=== PATIENT | female | born 1960 | race Caucasian/White ===

== ENCOUNTER → 2020-08-15 09:46 | Outpatient (CLI) | payer OTHER, SELFPAY ==
--- NOTE | ~2020-08-15 | MM_ITS ---
EXAMINATION: MM screening naren BI w karen HISTORY: Screening mammogram TECHNIQUE: Craniocaudal and mediolateral oblique 3-D tomosynthesis images were obtained and synthetic 2-D images were generated. CAD analysis was submitted and interpreted. COMPARISON: 08/19/2019, 08/06/2018 bilateral digital screening mammogram examinations 08/14/2017 diagnostic left digital mammogram and complete left breast ultrasound 07/31/2017 bilateral digital screening mammogram BREAST PARENCHYMAL COMPOSITION: There are scattered areas of fibroglandular density. FINDINGS: There is stable fibroglandular asymmetry. There is no evidence of suspicious mass, calcific ation, or architectural distortion to suggest malignancy in either breast. There has been no suspicio us interval change. IMPRESSION: 1. No mammographic evidence of malignancy. 2. Recommend routine screening mammography in one year. Reviewed, dictated and finalized at location A.
== END ==
PROVIDERS: Visit Provider Nurse Practitioner
DX: Z12.31 Encounter for screening mammogram for malignant neoplasm of breast (principal)
CPT/HCPCS: 77063; 77067

== ENCOUNTER → 2021-09-03 14:07 | Outpatient (CLI) | payer OTHER, SELFPAY ==
--- NOTE | ~2021-09-03 | MM_ITS ---
EXAMINATION: MM screening naren BI w karen HISTORY: Screening mammogram, family history of breast cancer in her sister. TECHNIQUE: Craniocaudal and mediolateral oblique 3-D tomosynthesis images were obtained and synthetic 2-D images were generated. CAD analysis was submitted and interpreted. COMPARISON: 08/15/2020, 08/09/2019, 08/06/2018 BREAST PARENCHYMAL COMPOSITION: The breasts are heterogeneously dense, which may obscure small masses . FINDINGS: There is stable focal asymmetry in the upper outer quadrant of the left breast. There is no evidence of suspicious mass, calcification, or architectural distortion to suggest malignancy in eit her breast. There has been no suspicious interval change. IMPRESSION: 1. No mammographic evidence of malignancy. 2. Recommend routine screening mammography in one year. BI-RADS Category 2: Benign finding(s). Reviewed, dictated and finalized at location A.
== END ==
PROVIDERS: PCP Family Medicine; Visit Provider Nurse Practitioner
DX: Z12.31 Encounter for screening mammogram for malignant neoplasm of breast (principal)
CPT/HCPCS: 77063; 77067

== ENCOUNTER → 2023-04-02 10:11 | Outpatient (CLI) | payer MEDICARE, SELFPAY ==
--- NOTE | ~2023-04-02 | MM_ITS ---
EXAMINATION: MM screening naren BI w karen HISTORY: Screening mammogram, family history of breast cancer in her sister. TECHNIQUE: Craniocaudal and mediolateral oblique 3-D tomosynthesis images were obtained and synthetic 2-D images were generated. CAD analysis was submitted and interpreted. COMPARISON: 09/03/2021, 08/15/2020, 90 08/20/2019 BREAST PARENCHYMAL COMPOSITION:There are scattered areas of fibroglandular density. FINDINGS: No suspicious mass, calcification, or architectural distortion are identified in either roseann ast to suggest malignancy. There has been no suspicious interval change. IMPRESSION: No mammographic evidence of malignancy. Recommend routine screening mammography in one year. BI-RADS Category 1: Negative Reviewed, dictated and finalized at location .
--- NOTE | ~2023-04-02 | DEXA_ITS ---
Bone Density Report Name: LISA WHITEHEAD Age: 63 Sex: Female Ethnicity: White Date of : 1960 Indication: postmenopausal; screening for osteoporosis; height loss; Referring Provider: MAURICE, CARISSA Study: Bone densitometry was performed. Exam Date: April 02, 2023 Accession number: [id number] Bone Density: Region BMD T-score Z-score Classification AP Spine (L1-L4) 1.143 0.9 2.6 Normal Femoral Neck (Left) 1.003 1.4 2.9 Normal Total Hip (Left) 1.094 1.2 2.5 Normal Femoral Neck (Right) 0.922 0.7 2.2 Normal Total Hip (Right) 1.013 0.6 1.8 Normal Total Hip Mean 1.054 0.9 2.2 Normal World Health Organization criteria for BMD impression classify patients as: Normal (T-score at or above -1.0), Osteopenia (T-score between -1.0 and -2.5), or Osteoporosis (T-score at or below -2.5). 10-year Fracture Risk: FRAX not reported because: All T-scores for Spine Total, Hip Total, Femoral Neck at or above -1.0 Previous Exams: Region Exam Age BMD T-score BMD Change BMD Change Date g/cm2 vs Baseline vs Previous AP Spine(L1-L4) 04/02/2023 63 1.143 0.9 -0.042* -0.030* 07/31/2017 57 1.172 1.1 -0.012 0.069* 06/02/2013 53 1.103 0.5 -0.081* -0.081* 04/03/2009 49 1.184 1.2 Total Hip(Left) 04/02/2023 63 1.094 1.2 0.038* 0.015 07/31/2017 57 1.079 1.1 0.023 0.022 06/02/2013 53 1.056 0.9 0.001 0.001 04/03/2009 49 1.056 0.9 Total Hip(Right) 04/02/2023 63 1.013 0.6 -0.073* -0.049* 07/31/2017 57 1.062 1.0 -0.024 -0.044* 06/02/2013 53 1.106 1.3 0.020 0.020 04/03/2009 49 1.085 1.2 *Denotes significance at 95% confidence level, LSC for AP Spine = 0.022 g/cm2, LSC for Total Hip = 0.027 g/cm2 Clinical Information Provided by Patient: Has used the following medications: Vitamin D Patient maximum height was 62 Menopause Age: 51 Drinks caffeinated beverages Onset of menses at age 10 Number of children 4 Impression: The patient has normal bone mass. The BMD for the AP Spine(L1-L4) decreased, changing by -0.030 since the last DXA exam. The BMD for the Total Hip(Right) decreased, changing by -0.049 since the last DXA exam. Discussion: BONE DENSITY IS ABOVE THE MINIMUM DESIRABLE LEVEL AT ALL SKELETAL SITES TESTED. This patient?s bone min
== END ==
PROVIDERS: PCP Family Medicine; Visit Provider Nurse Practitioner
DX: Z12.31 Encounter for screening mammogram for malignant neoplasm of breast (principal); Z78.0 Asymptomatic menopausal state
CPT/HCPCS: 77063; 77067; 77080

== ENCOUNTER 2024-04-05 07:14 | Outpatient (CLI) | payer MEDICARE, SELFPAY ==
--- NOTE | ~2024-04-05 | MM_ITS ---
EXAMINATION: MM screening naren BI w karen HISTORY: Screening mammogram TECHNIQUE: Craniocaudal and mediolateral oblique 3-D tomosynthesis images were obtained and synthetic 2-D images were generated. CAD analysis was submitted and interpreted. COMPARISON: 04/02/2023, 09/03/2021 bilateral screening mammogram examinations BREAST PARENCHYMAL COMPOSITION: There are scattered areas of fibroglandular density. FINDINGS: Stable fibroglandular asymmetry. There is no evidence of suspicious mass, calcification, or architectural distortion to suggest malignancy in either breast. There has been no suspicious interv al change. IMPRESSION: 1. No mammographic evidence of malignancy. 2. Recommend routine screening mammography in one year. BI-RADS Category 1: Negative Reviewed, dictated and finalized at location A.
== END 2024-04-05 07:15 ==
LOC: MICIMG 07:15
PROVIDERS: PCP Obstetrics & Gynecology Gynecology; Visit Provider Obstetrics & Gynecology Gynecology
DX: Z12.31 Encounter for screening mammogram for malignant neoplasm of breast (principal)
CPT/HCPCS: 77063; 77067

== ENCOUNTER 2024-08-03 05:54 | Day surgery (SDC) | payer MEDICARE, SELFPAY ==
[2024-07-20 09:16] VITALS: BMI 34.9
[2024-07-20 13:54] VITALS: BMI 33.9
--- NOTE | 2024-07-27 10:03 | P.HP_ITS ---
History of Present Illness History of Present Illness Consent: Risks, benefits, and alternatives have been discussed and questions answered. Patient agrees to proceed with procedure. Chief complaint: Screening for neoplasm of colon Narrative: Beatris Borges is a 64 year old female referred for colon cancer screening. [facility] Past Medical History Medical History (Updated 07/27/24 @ 10:03 by Ronnie Welch MD) Arthritis Carpal tunnel syndrome on both sides Excessive cerumen in both ear canals Rotator cuff arthropathy of both shoulders Family History Family History Father Leukemia Mother Brain tumor Sibling No problems noted. Other Family history of blood dyscrasia Family history of malignant neoplasm of breast in first degree relative Hypertension Social History Social History Smoking status: Never smoker Alcohol intake: never Substance use: never Substance use type: does not use Do You Feel Safe in your Home?: Yes Lack of Transportation: No Lack of Food: Never True Current Housing: I Have Housing Concerned About Future Housing: No Difficulty Paying Gas/Electric Bills: No Difficulty Paying for Meds: No Currently Unemployed: No Difficulty w/ Childcare or Family Care: No Living arrangements: with family Occupation/Education: retired Gender identity (if verbalized by the patient): Female Spiritual care concerns: No Meds Home Medications and Allergies Home Medications Medication Instructions Recorded Confirmed Type atorvastatin 10 mg tablet 10 mg PO DAILY #90 tabs 07/05/24 07/20/24 Rx cholecalciferol (vitamin D3) 125 125 mcg PO DAILY 07/05/24 07/20/24 History mcg (5,000 unit) capsule meloxicam 7.5 mg tablet 7.5 mg PO DAILY 07/05/24 07/20/24 History potassium chloride 10 mEq 10 meq PO DAILY #90 caps 07/05/24 07/20/24 Rx capsule,extended release triamterene 37.5 1 tablet PO DAILY #90 tabs 07/05/24 07/20/24 Rx mg-hydrochlorothiazide 25 mg tablet Allergies Allergy/AdvReac Type Severity Reaction Status Date / Time No Known Allergies Allergy Verified 07/20/24 13:56 Assessment and Plan Assessment and plan (1) Colon cancer screening: Code(s): Z12.11 - Encounter for screening for malignant neoplasm of colon Status: Acute Assessment and Plan: Colonoscopy with possible biopsy or polypectomy or cautery or injection of substances.
[2024-08-03 06:25] VITALS: BP 133/91; PULSE 79; RESP 15; TEMP 37.2; O2SAT 99
[2024-08-03] MEDS: LACTATED RINGERS 1,000 ML 150 ML IV CONT (06:32)
--- NOTE | 2024-08-03 06:56 | PM.HPGS ---
History of Present Illness History of Present Illness Consent: Risks, benefits, and alternatives have been discussed and questions answered. Patient agrees to proceed with procedure. Chief complaint: Screening for neoplasm of colon Narrative: Beatris Borges is a 64 year old female for screening colonoscopy. Patient's current weight appetite and bowel movements are normal. She denies abdominal pain. Patient has had no bleeding. Family history noncontributory. Previous colonoscopy 10 years ago was reported to be unremarkable. Review of Systems Review of Systems: All systems reviewed & are unremarkable except as noted in HPI and below PMFSH Past Medical History Medical History (Updated 07/27/24 @ 10:03 by Ronnie Welch MD) Arthritis Carpal tunnel syndrome on both sides Excessive cerumen in both ear canals Rotator cuff arthropathy of both shoulders Family History Family History Father Leukemia Mother Brain tumor Sibling No problems noted. Other Family history of blood dyscrasia Family history of malignant neoplasm of breast in first degree relative Hypertension Social History Social History Smoking status: Never smoker Alcohol intake: never Substance use: never Substance use type: does not use Do You Feel Safe in your Home?: Yes Lack of Transportation: No Lack of Food: Never True Current Housing: I Have Housing Concerned About Future Housing: No Difficulty Paying Gas/Electric Bills: No Difficulty Paying for Meds: No Currently Unemployed: No Difficulty w/ Childcare or Family Care: No Living arrangements: with family Occupation/Education: retired Gender identity (if verbalized by the patient): Female Spiritual care concerns: No Meds Home Medications and Allergies Home Medications Medication Instructions Recorded Confirmed Type atorvastatin 10 mg tablet 10 mg PO DAILY #90 tabs 07/05/24 08/03/24 Rx cholecalciferol (vitamin D3) 125 125 mcg PO DAILY 07/05/24 08/03/24 History mcg (5,000 unit) capsule meloxicam 7.5 mg tablet 7.5 mg PO DAILY 07/05/24 08/03/24 History potassium chloride 10 mEq 10 meq PO DAILY #90 caps 07/05/24 08/03/24 Rx capsule,extended release triamterene 37.5 1 tablet PO DAILY #90 tabs 07/05/24 08/03/24 Rx mg-hydrochlorothiazide 25 mg tablet Allergies Allergy/AdvReac Type Severity Reaction Status Date / Time No Known Allergies Allergy Verified 08/03/24 06:24 Vital Signs Vital Signs - 24 hr 08/03/24 06:25 Temperature 99 F Pulse Rate 79 Respiratory Rate 15 Blood Pressure 133/91 H Pulse Oximetry 99 Oxygen Delivery Room Air Exam Narrative: Physical exam reveals patient to be alert. Vital signs stable. HEENT exam is unremarkable. Patient is anicteric. Lungs are clear. Heart without murmur. Abdomen bowel sounds present soft nontender with no organomegaly. Digital external rectal exam normal. Assessment and Plan Assessment and plan (1) Colon cancer screening: Code(s): Z12.11 - Encounter for screening for malignant neoplasm of colon Status: Acute Assessment and Plan: Patient presents today for screening colonoscopy. She appears to be at average risk for colon polyps. Further recommendations may be given after endoscopy.
--- NOTE | 2024-08-03 07:02 | WPDANESEPPF ---
Anes - Initial Pre Proc Eval Procedure: Operation Date: 08/03/24 07:30 Proposed Procedures p Screening Colonoscopy - Ran Torres MD Date/Time: 08/03/24 07:02 Surgeon: Ran Torres MD Pre Op Diagnosis: Screening for neoplasm of colon Patient Data Age: 64 Gender: F Height: 1.55 m Weight: 81.25 kg Last Vital Signs Temp 37.2 C 08/03/24 06:25 Pulse 79 08/03/24 06:25 Resp 15 08/03/24 06:25 BP 133/91 H 08/03/24 06:25 Pulse Ox 99 08/03/24 06:25 O2 Del Method Room Air 08/03/24 06:25 Allergies Allergy/AdvReac Type Severity Reaction Status Date / Time No Known Allergies Allergy Verified 08/03/24 06:24 Home Medications Medication Instructions Recorded Confirmed Type atorvastatin 10 mg tablet 10 mg PO DAILY #90 tabs 07/05/24 08/03/24 Rx cholecalciferol (vitamin D3) 125 125 mcg PO DAILY 07/05/24 08/03/24 History mcg (5,000 unit) capsule meloxicam 7.5 mg tablet 7.5 mg PO DAILY 07/05/24 08/03/24 History potassium chloride 10 mEq 10 meq PO DAILY #90 caps 07/05/24 08/03/24 Rx capsule,extended release triamterene 37.5 1 tablet PO DAILY #90 tabs 07/05/24 08/03/24 Rx mg-hydrochlorothiazide 25 mg tablet Patient hx anesthesia problems: none Family hx anesthesia problems: none Results Review: All pre-operative results and documents have been reviewed as part of the pre-operative evaluation. [facility] Past Medical History Medical History (Updated 07/27/24 @ 10:03 by Ronnie Welch MD) Arthritis Carpal tunnel syndrome on both sides Excessive cerumen in both ear canals Rotator cuff arthropathy of both shoulders Family History Family History Father Leukemia Mother Brain tumor Sibling No problems noted. Other Family history of blood dyscrasia Family history of malignant neoplasm of breast in first degree relative Hypertension Social History Social History Smoking status: Never smoker Alcohol intake: never Substance use: never Substance use type: does not use Do You Feel Safe in your Home?: Yes Lack of Transportation: No Lack of Food: Never True Current Housing: I Have Housing Concerned About Future Housing: No Difficulty Paying Gas/Electric Bills: No Difficulty Paying for Meds: No Currently Unemployed: No Difficulty w/ Childcare or Family Care: No Living arrangements: with family Occupation/Education: retired Gender identity (if verbalized by the patient): Female Spiritual care concerns: No Anes - Eval Final PreProcedure Day of Procedure 08/03/24 07:02 Patient weight: obese Heart: regular rate and rhythm Lungs: clear to auscultation Airway: Mallampati scale class II Neurological: alert and oriented Last oral intake: >/= 8 hours ASA classification: II Emergent: no Anesthetic plan: proceed Anesthesia type and monitoring: general GIVS and standard monitoring Results Review: All pre-operative results and documents have been reviewed as part of the pre-operative evaluation. Informed Consent: The patient's anesthetic plan and its attendant risks and benefits were discussed with the patient/family/POA. Questions were solicited and answers provided to the satisfaction of the patient/family/POA.
[2024-08-03 07:42] VITALS: BP 112/69; PULSE 70; RESP 12; O2SAT 96
[2024-08-03 07:52] VITALS: BP 125/71; PULSE 66; RESP 14; O2SAT 99
[2024-08-03 08:02] VITALS: BP 121/76; PULSE 70; RESP 16; O2SAT 99
--- NOTE | 2024-08-03 11:21 | WPDANESPN ---
Anes - Prog Note Post-Op Date/Time: 08/03/24 11:21 Cardiovascular status: normal Respiratory status: normal Airway patency: baseline Mental status: baseline Post-Op hydration status: normal Vital Signs: Last Vital Signs Temp 37.2 C 08/03/24 06:25 Pulse 70 08/03/24 08:02 Resp 16 08/03/24 08:02 BP 121/76 08/03/24 08:02 Pulse Ox 99 08/03/24 08:02 O2 Del Method Room Air 08/03/24 08:02 Pain Score (VAS): 0 I/O: Intake & Output 08/02/24 08/03/24 08/03/24 23:59 07:59 15:59 Intake Total 200 50 Balance 200 50 Post-procedural complaints: none Patient Feedback: Patient satisfied with anesthetic care. Other Findings: Patient vital signs back to baseline. Patient denies nausea and vomiting. Patient's pain under control. Patient OK for discharge.
== END 2024-08-03 08:08 | disposition home or self-care (01) ==
PROVIDERS: PCP Family Medicine; Visit Provider Internal Medicine Gastroenterology
PROC: 0DJD8ZZ Inspection of Lower Intestinal Tract, Via Natural or Artificial Opening Endoscopic (ICD-10-PCS; CPT 45378; principal; 2024-08-03 07:30)
DX: Z12.11 Encounter for screening for malignant neoplasm of colon (principal); D12.2 Benign neoplasm of ascending colon; K57.30 Diverticulosis of large intestine without perforation or abscess without bleeding; K64.8 Other hemorrhoids
CPT/HCPCS: 45378

== ENCOUNTER 2024-08-03 07:00 | Outpatient (NON) | payer MEDICARE, SELFPAY | END 2024-08-03 07:01 | disposition home or self-care (01) | LOC: ANHLAB 08-04 08:24 | PROVIDERS: PCP Family Medicine; Visit Provider Internal Medicine Gastroenterology | DX: Z12.11 Encounter for screening for malignant neoplasm of colon (principal) | CPT/HCPCS: 88305 ==

== ENCOUNTER 2024-11-17 14:56 | Outpatient (CLI) | payer MEDICARE, SELFPAY ==
--- NOTE | ~2024-11-17 | US_ITS ---
EXAMINATION: US carotid duplex BI DATE: 11/17/2024 15:33 INDICATION: Other specified symptoms and signs involving the circulatory system. TECHNIQUE: Grayscale, color Doppler, and pulsed Doppler images of the cervical carotid arteries were obtained. The degree of vessel stenosis is placed in one of the following categories: normal, <50%, 5 0-69%, >=70% but less than near-occlusion, near-occlusion, or total occlusion. Note that percent sten osis relative to normal distal artery lumen diameter is indirectly measured from velocity measurement s as described by Rasheed, et al. Radiology 2003; 229:340-346. COMPARISON: None. FINDINGS: RIGHT: The right common carotid artery (CCA) peak systolic velocity (PSV) is 93 cm/s. The right internal car otid artery (ICA) PSV is 108 cm/s. The right ICA end-diastolic velocity (EDV) is 33 cm/s. The right I CA/CCA PSV ratio is 1.3. Grayscale and color Doppler images yield an estimate of <50% diameter reduct ion from plaque in the ICA. The external carotid artery (ECA) PSV is 145 cm/s. There is antegrade mariama w in the right vertebral artery. LEFT: The left CCA PSV is 77 cm/s. The left ICA PSV is 124 cm/s. The left ICA EDV is 30 cm/s. The left ICA/ CCA PSV ratio is 1.6. Grayscale and color Doppler images yield an estimate of <50% diameter reduction from plaque in the ICA. The ECA PSV is 107 cm/s. There is antegrade flow in the left vertebral arter y. IMPRESSION: 1. <50% stenosis in the right internal carotid artery. 2. <50% stenosis in the left internal carotid artery. Reviewed, dictated and finalized at location A. DYER
== END 2024-11-17 14:57 | disposition home or self-care (01) ==
PROVIDERS: PCP Family Medicine; Visit Provider Family Medicine
DX: R09.89 Other specified symptoms and signs involving the circulatory and respiratory systems (principal); I65.23 Occlusion and stenosis of bilateral carotid arteries
CPT/HCPCS: 93880

== ENCOUNTER 2024-12-09 10:09 | Outpatient (CLI) | payer MEDICARE, SELFPAY ==
--- NOTE | ~2024-12-09 | XR_ITS ---
XR shoulder RT min 2V 12/09/2024 10:39 Indication: Right shoulder pain Procedure: 4 views right shoulder Comparison: . No prior studies for comparison. Findings: There is osteoarthritis of the glenohumeral joint. No acute fracture, subluxation or disloc ation. No significant soft tissue abnormality. No foreign bodies. Impression: 1: Moderate osteoarthritis of the glenohumeral joint. Reviewed, dictated and finalized at location B. CHARGER Impression: 1: Moderate osteoarthritis of the glenohumeral joint.
--- NOTE | ~2024-12-09 | XR_ITS ---
HISTORY: M12.811 - Other specific arthropathies, not elsewhere cla... COMPARISON: None TECHNIQUE: 4 views of the left shoulder were performed FINDINGS: No acute fracture. The glenohumeral joint space is maintained. Degenerative disease is identified within the acromioclavicular joint space with osteophyte formation and joint space narrowing. The visualized portion of the adjacent left lung is clear. The humeral head is well seated within the glenoid fossa. IMPRESSION: Degenerative disease, without acute fracture or anterior dislocation. Reviewed, dictated and finalized at location A. [employer]
== END 2024-12-09 10:10 | disposition home or self-care (01) ==
PROVIDERS: PCP Family Medicine; Visit Provider Family Medicine
DX: M19.011 Primary osteoarthritis, right shoulder (principal); M19.012 Primary osteoarthritis, left shoulder
CPT/HCPCS: 73030

== ENCOUNTER 2025-01-19 06:52 | Outpatient (CLI) | payer MEDICARE, SELFPAY ==
--- NOTE | ~2025-01-19 | MR_ITS ---
MRI of the left shoulder Technique: Axial proton-density fat-sat images, coronal proton density fat-sat and T2 fat-sat images, and sagittal T1-weighted and T2 fat-sat images were acquired. Clinical History: Arthropathy Findings: Exam degraded by motion artifact. There is moderate to advanced AC joint degenerative willis e with subacromial spur present. Coracoclavicular, coracoacromial, and coracohumeral ligaments are gr ossly intact. There is probable moderate rotator cuff tendinosis. There is probable high-grade partial or full-thic kness tearing of the distal infraspinatus tendon. No definite partial or full-thickness tear of the s upraspinatus tendon. Subscapularis tendon is intact with moderate to advanced tendinosis. Tendon of l felicita head of the biceps appears to be intact. No definite labral tear evident. Inferior glenohumeral ligament is intact. There is small glenohumeral joint effusion. There is small amount of fluid in the subacromial/subdeltoid bursa. There is probable mild degenerative change of th e glenohumeral joint. There is mild fatty atrophy of the upper portion of the infraspinatus muscle. Impression: High-grade partial or full-thickness tearing of the distal infraspinatus tendon. Associated fatty atr ophy of the upper portion of the infraspinatus muscle belly. Additional background rotator cuff tendinosis, as above. Moderate to advanced AC joint degenerative change. Reviewed, dictated and finalized at [facility]. CTOR OF ENGINEERING Impression: High-grade partial or full-thickness tearing of the distal infraspinatus tendon . Associated fatty atrophy of the upper portion of the infraspinatus muscle bel ly. Additional background rotator cuff tendinosis, as above. Moderate to advanced AC joint degenerative change.
--- NOTE | ~2025-01-19 | MR_ITS ---
MRI of the right shoulder Technique: Axial proton-density fat-sat images, coronal proton density fat-sat and T2 fat-sat images, and sagittal T1-weighted and T2 fat-sat images were acquired. Clinical History: Arthropathy Findings: There is moderate to advanced AC joint degenerative change. Coracoclavicular, coracoacromia l, and coracohumeral ligaments are intact. There is severe supraspinatus tendinosis. There is probable low-grade bursal surface partial tearing of the distal supraspinatus tendon insertion. There is full-thickness tearing involving essentially t he entire infraspinatus tendon. Subscapularis tendon demonstrates severe tendinosis without definite tear. There is complete rupture of the proximal long head biceps tendon, with retraction to the bicip ital groove. There is extensive degenerative attenuation and tearing of the superior labrum, probably extending to the anterosuperior and posterior superior portions. Inferior glenohumeral ligament is intact. There is moderate glenohumeral joint degenerative change. T here are small glenohumeral joint effusion with fluid passing through the rotator cuff defect into th e subacromial/subdeltoid bursa. Probable mild fatty atrophy of the infraspinatus muscle belly. Impression: Complete, full-thickness tear of the infraspinatus tendon with probable mild fatty atrophy of the inf raspinatus muscle belly. Low-grade bursal surface partial tearing of the distal supraspinatus tendon. Complete rupture of the proximal long head biceps tendon. Moderate to advanced degenerative change of the glenohumeral joint and AC joint, as above. Degenerative SLAP tear of the labrum. Reviewed, dictated and finalized at [facility]. E SOURER Impression: Complete, full-thickness tear of the infraspinatus tendon with probable mild fa tty atrophy of the infraspinatus muscle belly. Low-grade bursal surface partial tearing of the distal supraspinatus tendon. Complete rupture of the proximal long head biceps tendon. Moderate to advanced degenerative change of the glenohumeral joint and AC joint , as above. Degenerative SLAP tear of the labrum.
--- OUTSIDE RECORDS SUMMARY | 2025-01-19 06:58 | XMS_ITS | Clinical Summary ---
Author Organization [facility] [place] Address [address] [place] [id number] Care Team Providers Care Riding Double Name Role Phone Yeison Gilliland DO Primary Care Provider Social History Tobacco Use Types Packs/Day Years Used Date Smoking Tobacco: Never Assessed Comments Unknown Sex and Gender Information Value Date Recorded Sex Assigned at Not on file Legal Sex Female 9:35 PM CDT Gender Identity Not on file Sexual Orientation Not on file Plan of Treatment Health Maintenance Due Date Last Done Comments Colorectal Cancer Screening Colonoscopy (10 Years) 1960 Hepatitis C 1976 DTaP, Tdap and Td Vaccines ( 1 - Tdap) 1977 Mammogram Screening 1998 Zoster Vaccines (1 of 2) 2008 Dexa Scan (General) 2023 Pneumococcal Vaccine: 65+ Ye ars (1 of 1 - PCV) 2023 COVID-19 Vaccine ( - 2023-2 5 season) 2024 Influenza Adult (#1) 2024 RSV Immunization or 60+ Years (1 - 1-dose 75+ series) 2033 Meningococcal B Vaccine Aged Out No l onger eligible based on patient's age to complete this topic Meningococcal Vaccine Aged Out No michell asa eligible based on patient's age to complete this topic RSV Immunizations Under 20 Months Aged Out No longer eligible based on patient's age to complete this topic Care Teams Riding Double Relationship Specialty Start Date End Date Yeison Gilliland DO PCP - General 08/17/13
--- OUTSIDE RECORDS SUMMARY | 2025-01-19 06:58 | XMS_ITS | Referral Summary ---
Author Organization [facility] at the [facility] Address [address] [place] [address] Care Team Providers Care Inspector Machine Cut Glass Name Role Phone Yeison Serrato DO Primary Care Provider + Yeison Serrato DO Unavailable [phone] Allergies Active Allergy Reactions Criticality Noted Date Comments Tramadol Tramadol Hcl Unknown 05/11/2019 Medications potassium 99 mg tablet Take 1 tablet (99 mg total) by mouth daily Active triamterene-hydr oCHLOROthiazide 37.5-25 mg per tablet Take 1 tablet by mouth once daily 90 tablet 1 07/13/2023 Active meloxicam (MOBIC) 7.5 mg tablet Take 1 tablet by mouth once daily 90 tablet 1 07/13/2023 Active atorvastatin (LIPITOR) 10 mg tablet Take 1 tablet by mouth once daily 30 tablet 2 12/03/2023 Active Active Problems Problem Noted Date Diagnosed Date Encounter for Medicare annual wellness exam 08/2023 Assessment & Plan (07/09/2023 9:14 AM CDT): Meds reviewed and reconciled Dyslipidemia 07/26/2021 Assessment & Plan (01/28/2022 7:50 AM LOADING DOCK HELPER): Patient is well controlled. Continue current treatment. Assessment & Plan (07/26/2021 7:41 AM CDT): Lipid profile and LFT HTN (hypertension) 05/17/2019 Assessment & Plan (01/28/2022 7:50 AM LOADING DOCK HELPER): Patient is well controlled. Continue current treatment. Assessment & Plan (07/26/2021 7:40 AM CDT): CBC Chem 7 Assessment & Plan (07/19/2020 9:39 AM CDT): Patient is well controlled. Continue current treatment. Assessment & Plan (11/16/2019 8:37 AM LOADING DOCK HELPER): Order lab Assessment & Plan (05/17/2019 9:04 AM CDT): Patient is well controlled. Continue current treatment. Osteoarthritis 05/17/2019 Assessment & Plan (01/28/2022 7:51 AM LOADING DOCK HELPER): Patient is well controlled. Continue current treatment. Assessment & Plan (07/19/2020 9:39 AM CDT): Patient is well controlled. Continue current treatment. Assessment & Plan (11/16/2019 8:37 AM LOADING DOCK HELPER): No new orders Assessment & Plan (05/17/2019 9:04 AM CDT): Patient is well controlled. Continue current treatment. Resolved Problems Problem Noted Date Diagnosed Date Resolved Date BMI 33.0-33.9,adult 07/26/2021 01/28/20 22 Assessment & Plan (07/26/2021 7:42 AM CDT): She is exercising regularly. She is watching her diet. Neck swelling 11/16/2019 07/26/2021 Assessment & Plan (11/16/2019 8:42 AM LOADING DOCK HELPER): Fu ER Doing well No new orders Annual physical exam 09/15/2019 08 023 Assessment & Plan (01/28/2022 7:50 AM LOADING DOCK HELPER): Patient is well controlled. Continue current treatment. Annual physical exam 05/17/2019 022 Assessment & Plan (01/25/2021 10:04 AM LOADING DOCK HELPER): All lab utd Mammogram utd Colonoscopy utd Assessment & Plan (05/17/2019 9:08 AM CDT): Lab Colonoscopy Osteoarthritis of foot 01/04/201601/28 Overview (03/13/2017): Primary osteoarthritis of right foot Immunizations Immunization Administration Dates Next Due Influenza, Quadrivalent, Spl it, Preservative Free, Intramuscular 12/10/2022,10/09/2021,08/29/2020,09/15 Influenza, Trivalent, Preser vative Free, Intramuscular 12/01/2018 Influenza, Unspecified 08/31/2021,09/01/2020 Tdap 09/15/2019 ZOSTER Recombinant 06/24/2023 Social History Tobacco Use Types Packs/Day Years Used Date Smoking Tobacco: Never Smokeless Tobacco: Never Alcohol Use Standard Drinks/Week Comments Never 0 (1 standard drink = 0.6 oz pur e alcohol) AUDIT-C Answer Date Recorded Q1: How often do you have a drink containing alc ohol? Never 07/09/2023 Average Number of Drinks Not on file 023 Frequency of Binge Drinking Not on file 08/2023 PHQ-2 Answer Date Recorded PHQ-2 Total Score (If total score is 3 or more points, staff should administer the PHQ-9) 0 07/09/2023 Comments No Sex and Gender Information Value Date Recorded Sex Assigned at Not on file Legal Sex Female 11:14 AM LOADING DOCK HELPER Gender Identity Not on file Sexual Orientation Not on file Last Filed Vital Signs Vital Sign Reading Time Taken Comments Blood Pressure 132/82 07/09/2023 8:51 AM CDT Pulse 75 07/09/2023 8:51 AM CDT Temperature 36.6 C (97.8 F) 07/09/2023 8:51 AM CDT Respiratory Rate 16 07/09/2023 8:51 AM CDT Oxygen Saturation 96% 07/09/2023 8:51 AM CDT Inhaled Oxygen Concentration - - Weight 84.7 kg (186 lb 12.8 oz) 07/09/2023 8:51 AM CDT Height 157.5 cm (5' 2 ) 07/09/2023 8:51 AM CDT Body Mass Index 34.17 07/09/2023 8:51 AM CDT Plan of Treatment Not on file Procedures Procedure Name Priority Date/Time Associated Diagnosis Comments HEPATITIS C ANTIBODY Routine 12/26/2021 7:55 AM LOADING DOCK HELPER Primary hypertension Dyslipidemia BMI 33.0-33.9,adult Contact with and (suspected) exposure to potentially hazardous body fluids SCREENING MAMMOGRAM Schedule Routine, Read Routine (OP Routine) 09/03/2021 COLONOSCOPY Routine 06/15/2019 from Last 3 Months or Most Recently Relevant to Health Maintenance Results * Hepatitis C antibody (12/26/2021 7:55 AM LOADING DOCK HELPER) Hep C Ab <0.1 0.0 - 0.9 s/co ratio [facility] - 01 Comment: Negative: < 0.8 Indeterminate: 0.8 - 0.9 Positive: > 0.9 The CDC recommends that a positive HCV antibody result be followed up with a HCV Nucleic Acid Amplification test (600308). Blood specimen (specimen) 12/26/2021 7:55 AM LOADING DOCK HELPER 12/26/2021 Narrative [facility] - 12/27/2021 7:36 AM LOADING DOCK HELPER Performed at: [facility] [id number] Marine Machinist: Ian Wilkerson PhD, Phone: [phone] us Yeison Serrato DO LAB MICROBIOLOGY - GENER AL ORDERABLES Final Result [facility] - 01 * Screening Mammogram (09/03/2021) Anatomical Region Laterality Modality Breast N/A Mammography us Historical Provider IMG MAMMO PROCEDURES Inez l Result * Colonoscopy (06/15/2019) Anatomical Region Laterality Modality Other us Historical Provider ENDOSCOPY PROCEDURES Inez l Result from Last 3 Months or Most Recently Relevant to Health Maintenance Insurance MEDICARE [facility] Address: [address] [address] [place] [address] Care Teams Inspector Machine Cut Glass Relationship Specialty Start Date End Date Yeison Serrato DO PCP - General Family Medicine 05/12/19 Yeison Serrato DO [address] [place] [address] [place] [address] 05/12/19
--- OUTSIDE RECORDS SUMMARY | 2025-01-19 06:58 | XMS_ITS | Encounter Summary ---
Author Organization [facility] Care Team Providers Care Associate Art Director Name Role Phone Yeison Serrato DO Primary Care Provider + [phone] Yeison Serrato DO Primary Care Provider + [phone] Yeison Serrato DO Primary Care Provider + Yeison Serrato DO Unavailable [phone] Encounter Details Date Type Department Care Team (Latest Contact Info) Description 06/28/2016 Orders Only [facility] Provider, MD Aster [address] [place] [id number] Social History Tobacco Use Types Packs/Day Years Used Date Smoking Tobacco: Never Assessed Comments Unknown Sex and Gender Information Value Date Recorded Sex Assigned at Not on file Legal Sex Female 11:14 AM FERMENTER [place]AMP[place]NE Gender Identity Not on file Sexual Orientation Not on file documented as of this encounter Plan of Treatment Not on file documented as of this encounter Procedures Procedure Name Priority Date/Time Associated Diagnosis Comments SCAN - LABS 07/01/2016 12:00 AM CDT documented in this encounter Results * SCAN - LABS (07/01/2016 12:00 AM CDT) Narrative 07/01/2016 12:00 AM CDT Ordered by an unspecified provider. us Historical Provider Final Res ult documented in this encounter Visit Diagnoses Not on filedocumented in this encounter Care Teams Associate Art Director Relationship Specialty Start Date End Date Yeison Serrato DO [address] [place] [address] PCP - General 04/08/16 11/28/16 Yeison Serrato DO [address] [place] [address] PCP - General 11/29/16 05/11/19 Yeison Serrato DO [address] [place] [address] PCP - General Family Medicine 05/12/19 Yeison Serrato DO [address] [place] [address] 05/12/19 documented as of this encounter
--- OUTSIDE RECORDS SUMMARY | 2025-01-19 06:58 | XMS_ITS | Clinical Summary ---
Author Organization [facility] [place] Address [address] [place] [address] Care Team Providers Care Tennis Player Name Role Phone Yeison Serrato DO Primary Care Provider + Yeison Serrato DO Unavailable [phone] Allergies Active Allergy Reactions Criticality Noted Date [...] 07/26/2021 Assessment & Plan (01/28/2022 7:50 AM SHOE POLISHER): Patient is well controlled. Continue current treatment. Assessment & Plan (07/26/2021 7:41 AM CDT): Lipid profile and LFT HTN (hypertension) 05/17/2019 Assessment & Plan (01/28/2022 7:50 AM SHOE POLISHER): Patient is well controlled. Continue current treatment. Assessment & Plan (07/26/2021 7:40 AM CDT): CBC Chem 7 Assessment & Plan (07/19/2020 9:39 AM CDT): Patient is well controlled. Continue current treatment. Assessment & Plan (11/16/2019 8:37 AM SHOE POLISHER): Order lab Assessment & Plan (05/17/2019 9:04 AM CDT): Patient is well controlled. Continue current treatment. Osteoarthritis 05/17/2019 Assessment & Plan (01/28/2022 7:51 AM SHOE POLISHER): Patient is well controlled. Continue current treatment. Assessment & Plan (07/19/2020 9:39 AM CDT): Patient is well controlled. Continue current treatment. Assessment & Plan (11/16/2019 8:37 AM SHOE POLISHER): No new orders Assessment & Plan (05/17/2019 9:04 AM CDT): Patient is well controlled. Continue current treatment. Resolved Problems Problem Noted Date Diagnosed Date Resolved Date BMI 33.0-33.9,adult 07/26/2021 01/28/20 22 Assessment & Plan (07/26/2021 7:42 AM CDT): She is exercising regularly. She is watching her diet. Neck swelling 11/16/2019 07/26/2021 Assessment & Plan (11/16/2019 8:42 AM SHOE POLISHER): Fu ER Doing well No new orders Annual physical exam 09/15/2019 08 023 Assessment & Plan (01/28/2022 7:50 AM SHOE POLISHER): Patient is well controlled. Continue current treatment. Annual physical exam 05/17/2019 022 Assessment & Plan (01/25/2021 10:04 AM SHOE POLISHER): All lab utd Mammogram utd Colonoscopy utd Assessment & Plan (05/17/2019 9:08 AM CDT): Lab Colonoscopy Osteoarthritis of foot 01/04/201601/28 Overview (03/13/2017): Primary osteoarthritis of right foot Immunizations Immunization Administration Dates Next Due Influenza, Quadrivalent, Spl it, Preservative Free, Intramuscular 12/10/2022,10/09/2021,08/29/2020,09/15 Influenza, Trivalent, Preser vative Free, Intramuscular 12/01/2018 Influenza, Unspecified 08/31/2021,09/01/2020 Tdap 09/15/2019 ZOSTER Recombinant 06/24/2023 Surgical History Surgery Date Site/Laterality Comments CARPAL TUNNEL RELEASE Carpal tunnel release ROTATOR CUFF REPAIR Rotator cuff repair OTHER SURGICAL HISTORY Arthrodesis, subtalar OTHER SURGICAL HISTORY Removal of deep support implant ROTATOR CUFF REPAIR TUBAL LIGATION HEEL SPUR EXCISION OVARY SURGERY Medical History Medical History Date Comments Hx Other Medical ovary removed Hx Other Medical Tubal ligation Osteoarthritis Osteoarthritis Hypertension Hypertension HTN (hypertension) Arthritis Family History Medical History Relation Name Comments Hypertension Brother Hypertension; Lung cancer Father Brain Tumor Mother Heart disease Sister 1 Hypertension Sister 1 Hypertension Sister 2 Hypertension; Relation Name Status Comments Brother Father Mother Sister 1 Alive Sister 2 Alive Social History Tobacco Use Types Packs/Day Years [...] on file Legal Sex Female 11:14 AM SHOE POLISHER Gender Identity Not on file Sexual Orientation Not on file Obstetrics History Last Filed Vital Signs Vital Sign Reading [...] 07/09/2023 8:51 AM CDT Plan of Treatment Health Maintenance Due Date Last Done Comments Osteoporosis Screening-Bone Density Scan 1958 Hepatitis B Screening 1976 Breast Cancer Screening-Mammogram 09/03/2022 021 Pneumococcal vaccine 65+ (1 of 1 - PCV) 2023 Zoster Vaccine (2 of 2) 08/19/2023 06/24/2023 Colon Cancer Screening-Colonoscopy 06/15/2024 06/15/2019 Depression Screening 07/09/2024 07/09/2023, 01/28/2022, 01/25/2021, Additional history exists Fall Risk Assessment 07/09/2024 07/09/2023, 05/17/20 19 Well Visit 65+ 07/09/2024 07/09/2023, 01/02, 01/25/2021, Additional history exists Covid-19 Vaccine (3 - 2023-2 5 season) 2024 07/23/2021, 07/02/2021 Influenza Vaccine (#1) 2024 , 10/09/2021, 08/31/2021, Additional history exists DTaP/Tdap/Td Vaccine (2 - Td or Tdap) 09/15/2029 09/15/2019 Colon Cancer Screening-CT Colonography Discontinued 06/15/2019 Colon Cancer Screening-DNA Stool Discontinued 06/15/20 19 Colon Cancer Screening-FIT Discontinued 06/15/2019 Colon Cancer Screening-Sigmoidoscopy Discontinued 06/15/2019 Hepatitis C Screening Completed 12/26/2021 Procedures Procedure Name Priority Date/Time Associated Diagnosis Comments HEPATITIS C ANTIBODY Routine 12/26/2021 7:55 AM SHOE POLISHER Primary hypertension Dyslipidemia BMI 33.0-33.9,adult Contact with and (suspected) exposure to potentially hazardous body fluids SCREENING MAMMOGRAM Schedule Routine, Read Routine (OP Routine) 09/03/2021 COLONOSCOPY Routine 06/15/2019 from Last 3 Months or Most Recently Relevant to Health Maintenance Results * Hepatitis C antibody (12/26/2021 7:55 AM SHOE POLISHER) Pathologist [facility] Hep C Ab <0.1 0.0 - 0.9 s/co ratio [facility] - 01 Comment: Negative: < 0.8 Indeterminate: 0.8 - 0.9 Positive: > 0.9 The CDC recommends that a positive HCV antibody result be followed up with a HCV Nucleic Acid Amplification test ([id number]). Blood specimen (specimen) 12/26/2021 7:55 AM SHOE POLISHER 12/26/2021 Narrative [facility] - 12/27/2021 7:36 AM SHOE POLISHER Performed at: - Lab[address] [id number] Return Clerk: Ian Wilkerson PhD, Phone: [phone] Yeison Serrato DO LAB MICROBIOLOGY - GENER AL ORDERABLES Final Result [facility] - 01 * Screening Mammogram (09/03/2021) Anatomical Region Laterality Modality Breast N/A Mammography Historical Provider IMG MAMMO PROCEDURES Inez l Result * Colonoscopy (06/15/2019) Anatomical Region Laterality Modality Other Historical Provider ENDOSCOPY PROCEDURES Inez l Result from Last 3 Months or Most Recently Relevant to Health Maintenance Insurance [facility] [employer] Care Teams Tennis Player Relationship Specialty Start Date End Date Yeison Serrato DO PCP - General Family Medicine 05/12/19 Yeison Serrato DO [address] [place] [address] [place] [address] 05/12/19
--- OUTSIDE RECORDS SUMMARY | 2025-01-19 06:58 | XMS_ITS | Data Portability ---
Author Organization [facility] Address [address] [place] [address] Assessment No assessment recorded. Plan of Treatment Reminders Order Date Submit Date Provider Last Modified By Organization Details Last Modified Time Details Appointments None record ed. Lab None record ed. Referral None record ed. Procedures None record ed. Surgeries None record ed. Imaging None record ed. Medication Orders None record ed. Patient TargetsNo targets recorded. Patient Instructions Encounter Date Encounter Id Patient Instructions Last Modified By Organization Details Last Modified Time 01/06/2024 [id number] A healthy lifestyle: care instructions [email or web address] Not available 01/06/2024 17:37:46 Reason for Referral None Reported. Problems Name Problem SNOMED Code Status Onset Date Resolution Date Notes Provider Name and Address Organization Details Recorded Time Osteoarthritis 715701053 Active 2023 Yeison Serrato DO Attn: Loree joiner,[address] [place], [address], [facility] 4 17:31:30 Obesity 414882682 Active 2023 Yeison Serrato DO Attn: Loree joiner,[address] [facility], [place], [address], [facility] 4 17:31:31 Hyperlipidemia 24836619 Active 2023 Yeison Serrato DO Attn: Loree joiner,[address] [facility], [place], [address], [facility] 4 17:31:32 Essential hypertension 61422746 Active 2023 Yeison Serrato DO Attn: Loree joiner,[address], [place], [address] [place] [address] 4 17:31:33 Problem Notes None recorded. Procedures Surgical History Date Name Laterality Status Provider Name and Address Organization Details Recorded Time Arthroscopic Surgery completed Lisa Kyle [facility] 01/06/2024 16:36:13 Imaging Results None recorded. Procedure Notes None recorded. Medical Equipment None Reported. Allergies No known drug allergies Medications Name Sig Start Date Stop Date Status Note LastModified by Organization Details LastModified Time atorvastatin 10 mg tablet Take 1 tablet by mouth once daily 024 active Not Available Not Available Not Avai lable meloxicam 7.5 mg tablet TAKE 1 TABLET BY MOUTH ONCE DAILY active Not Available Not Available No t Available triamterene 37.5 mg-hydrochloro thiazide 25 mg tablet TAKE 1 TABLET BY MOUTH ONCE DAILY active Not Available Not Available No t Available Vitals Date Recorded Body height Body mass index (BMI) Body weight Oxygen saturation Oxygen saturation in Arterial blood by Pulse oximetry Heart rate Body temperature Systolic blood pressure Diastolic blood pressure Provider Name and Address Organization Details Last Updated DateTime 4 157.48 cm 34.2 kg/m2 41101.7 7 g 95 % 95 % 79 /min 98 [degF] 127 mm[Hg] 81 mm[Hg] Barbara Eason MA [facility] 4 16:57:50 Social History Question Answer Notes LastModified by Organizat ion Details LastModified Time Tobacco Smoking Status Never Smoker Lisa Kyle null, [facility] 01/06/2024 16:37:09 What Is Your Level Of Alcohol Consumption? None [email or web address] Information not available 01/06/2024 What Was The Date Of Your Most Recent Tobacco Screening? 01/06/2024 [email or web address] Information not available 01/06/2024 Sex: Female Functional Status None recorded. Mental Status None recorded. Family History Relationship Description Onset Age of this Age Resolved Age Notes LastModified by Organization Details LastModified Time Sister Malignant tumor of breast [email or web address] Not available 2023 16:36:26 Sister Malignant tumor of ovary [email or web address] Not available 2023 16:36:44 Mother Hypertensive disorder [email or web address] Not available 2023 16:36:34 Medical History Condition Response Coronary Artery Disease N Other N High Blood Pressure Y Atrial Fibrillation N Thyroid Problems N Kidney or Bladder Problems N GI Problems N Depression N COPD N Blood Clots N Skin Problems N Eating Disorder N Anemia N Heart Attack (OR) N Anxiety Disorder N Diabetes N Muscle, Joint, or Bone Problems N Arthritis N Seizures/Epilepsy N Acid Reflux (GERD) N Cancer N Stroke N Asthma N Allergies N ADHD N Substance Abuse N High Cholesterol Y Hepatitis N Liver Disease N Schizophrenia N Headaches N Heart Failure N Osteoporosis N Gynecological HistoryNo gynecological history recorded. Obstetrics History GPAL:G 0 P 0 0 0 0 Past Encounters Encounter ID Performer Location Encounter Start Date Encounter Closed Date Diagnosis/Indication Diagnosis SNOMED-CT Code Diagnosis ICD10 Code Diagnosis Note [id number] Yeison Serrato DO [facility] [place] [facility] [place] [address] [address] 01/06/2024 16:20:00 01/13/2024 16:37:03 Osteoarthritis 982561512 M19.90 mobic 7.5 mg Obesity 002053132 E66.9 healthy diet Hyperlipidemia 16166234 E78.5 atorvastat in 10 mg dailystabl e Essential hypertension 51497008 I10 dyazide 25 mgdoing well Health Concerns Section Related Observation LastModified by Organization Detai ls LastModified Time None Recorded Concern Status LastModified by Organization Details LastModified Time None Recorded Advance Directives Directive None Recorded Payers Encounter Date Sequence Insurance Name Policy Number Policy Ingram Covered Member ID Ingram Member ID Guarantor Name 01/06/2024 1 [facility] (MEDICARE REPLACEMENT/A DVANTAGE - HMO) [id number] Beatris Borges [id number] Beatris Borges Notes Date Note Type Note Provider Name and Address Organization Details Recorded Time 01/06/2024 text/html establish care Yeison Serrato DO Attn: Accounting,[address] [place], [address], [facility] 01/06/2024 17:37:49 OBGyn Episode No OBEpisode recorded.
== END 2025-01-19 06:53 | disposition home or self-care (01) ==
PROVIDERS: PCP Family Medicine; Visit Provider Family Medicine
DX: M75.101 Unspecified rotator cuff tear or rupture of right shoulder, not specified as traumatic (principal); M19.011 Primary osteoarthritis, right shoulder; M19.012 Primary osteoarthritis, left shoulder
CPT/HCPCS: 73221

== ENCOUNTER 2025-03-10 14:41 | Outpatient (CLI) | payer MEDICARE, SELFPAY ==
--- NOTE | ~2025-03-10 | CT_ITS ---
EXAMINATION: CT shoulder LT wo con DATE: 03/10/2025 13:40 INDICATION: Left shoulder pain for preoperative planning. TECHNIQUE: High resolution computed tomography (CT) of the left shoulder was performed without intrav enous contrast. Additional sagittal and coronal reconstructions were performed. Automated exposure co ntrol and iterative reconstruction technique were employed. The dose-length product was 465.95 mGy-cm . COMPARISON: MR dated 01/19/2025 FINDINGS: Bone alignment is normal. No fracture. Severe acromioclavicular osteoarthritis. Mild glenohumeral ost eoarthritis with subarticular cystic change along the posterior glenoid. No glenohumeral joint effusi on. There are additional cystic changes and lucent likely suture anchor tracks at the lesser and grea ter tuberosities consistent with prior rotator cuff repair. There is mild fatty atrophy of the supras pinatus and infraspinatus muscle bellies consistent with likely chronic rotator cuff tear. There is a t least partial tear of the long head biceps tendon which abruptly attenuates at the inferior margin of the intertubercular groove. Calcified left lower lobe nodule and calcified left hilar lymph nodes consistent with old granulomatous disease. No pathologically enlarged lymphadenopathy at the left axi lla, left hilum or visualized mediastinum. Mild mid to upper thoracic and moderate lower cervical spo ndylosis. IMPRESSION: 1. Mild left glenohumeral and severe acromioclavicular osteoarthritis. 2. Left infraspinatus and supraspinatus fatty atrophy likely related to chronic rotator cuff tears wi th suture anchor tracks at the lesser greater tuberosity consistent with prior rotator cuff repair. 3. At least partial tear of the long head biceps tendon. Reviewed, dictated and finalized at location B. IMPRESSION: 1. Mild left glenohumeral and severe acromioclavicular osteoarthritis. 2. Left infraspinatus and supraspinatus fatty atrophy likely related to chronic rotator cuff tears with suture anchor tracks at the lesser greater tuberosity consistent with prior rotator cuff repair. 3. At least partial tear of the long head biceps tendon.
--- OUTSIDE RECORDS SUMMARY | 2025-03-10 13:26 | XMS_ITS | Clinical Summary ---
Author Organization [facility] Address [address] [place] [address] Care Team Providers Care Commercial Loan Manager Name Role Phone Yeison Gilliland DO Primary Care Provider [phone] Social History Tobacco Use Types Packs/Day Years [...] Vaccine ( - 2023-2 5 season) 2024 RSV Immunization or 60+ Years (1 [...] age to complete this topic Care Teams Commercial Loan Manager Relationship Specialty Start Date End Date Yeison Gilliland DO PCP - General 08/17/13
--- OUTSIDE RECORDS SUMMARY | 2025-03-10 13:26 | XMS_ITS | Data Portability ---
Author Organization [facility] NATTY[facility]mini Address [address] [place] [address] Assessment No assessment recorded. Plan of Treatment [...] By Organization Details Last Modified Time 01/06/2024 [id number] A healthy lifestyle: care instructions [email or web address] Not available 01/06/2024 17:37:46 Reason for Referral None Reported. Problems Name Problem SNOMED Code Status Onset Date Resolution Date Notes Provider Name and Address Organization Details Recorded Time Osteoarthritis 020368288 Active 2023 Yeison Serrato DO Attn: Loree joiner,[address] [place], [address], [facility] 4 17:31:30 Obesity 274784489 Active 2023 Yeison Serrato DO Attn: Loree joiner,[address] [facility], [place], [address], [facility] 4 17:31:31 Hyperlipidemia 52840610 Active 2023 Yeison Serrato DO Attn: Loree joiner,[address] [facility], [place], [address], [facility] 4 17:31:32 Essential hypertension 55237477 Active 2023 Yeison Serrato DO Attn: Loree joiner,[address], [place], [address] [place] [address] 4 17:31:33 Problem Notes None recorded. Procedures Surgical History Date Name Laterality Status Provider Name and Address Organization Details Recorded Time Arthroscopic Surgery completed Lisa Kyle [facility] 01/06/2024 16:36:13 Imaging Results None recorded. Procedure [...] Updated DateTime 4 157.48 cm 34.2 kg/m2 60607.7 7 g 95 % 95 % 79 /min 98 [degF] 127 mm[Hg] 81 mm[Hg] Barbara Eason MA [facility] 4 16:57:50 Social History Question Answer Notes LastModified by Organizat ion Details LastModified Time Tobacco Smoking Status Never Smoker Lisa Kyle null, [facility] 01/06/2024 16:37:09 What Is Your Level Of Alcohol Consumption? None Information not available 01/06/2024 What Was The Date Of Your Most Recent Tobacco Screening? 01/06/2024 [email or web address] Information not available 01/06/2024 Sex: Female Functional Status None recorded. Mental Status None recorded. Family History Relationship Description Onset Age of this Age Resolved Age Notes LastModified by Organization Details LastModified Time Sister Malignant tumor of breast [email or web address] Not available 2023 16:36:26 Sister Malignant tumor of ovary [email or web address] Not available 2023 16:36:44 Mother Hypertensive disorder [email or web address] Not available 2023 16:36:34 Medical History Condition Response Coronary Artery Disease N Other N High Blood Pressure Y Atrial Fibrillation N Thyroid Problems N Kidney or Bladder Problems N GI Problems N Depression N COPD N Blood Clots N Skin Problems N Eating Disorder N Anemia N Heart Attack ([place]) N Anxiety Disorder N Diabetes N Muscle, [...] SNOMED-CT Code Diagnosis ICD10 Code Diagnosis Note [id number] Yeison Serrato DO [facility] [place] [facility] [place] [address] [address] 01/06/2024 16:20:00 01/13/2024 16:37:03 Osteoarthritis 862289197 M19.90 mobic 7.5 mg Obesity 422634272 E66.9 healthy diet Hyperlipidemia 21034490 E78.5 atorvastat in 10 mg dailystabl e Essential hypertension 55088921 I10 dyazide 25 mgdoing well Health Concerns Section Related Observation LastModified by Organization Detai ls LastModified Time None Recorded Concern Status LastModified by Organization Details LastModified Time None Recorded Advance Directives Directive None Recorded Payers Encounter Date Sequence Insurance Name Policy Number Policy Ingram Covered Member ID Ingram Member ID Guarantor Name 01/06/2024 1 [facility] (MEDICARE REPLACEMENT/A DVANTAGE - HMO) [id number] Beatris Borges [id number] Beatris Borges Notes Date Note Type Note Provider Name and Address Organization Details Recorded Time 01/06/2024 text/html establish care Yeison Serrato DO Attn: Accounting,[address] [place], [address], [facility] 01/06/2024 17:37:49 OBGyn Episode No OBEpisode recorded.
--- OUTSIDE RECORDS SUMMARY | 2025-03-10 13:26 | XMS_ITS | Referral Summary ---
Author Organization [facility] Address [address] [place] [address] Care Team Providers Care Sound Equipment Mechanic Name Role Phone Yeison Serrato DO Primary Care Provider + Yeison Serrato DO Unavailable [phone] Allergies Active Allergy Reactions Criticality Noted Date [...] 07/26/2021 Assessment & Plan (01/28/2022 7:50 AM CAREER COUNSELOR): Patient is well controlled. Continue current treatment. Assessment & Plan (07/26/2021 7:41 AM CDT): Lipid profile and LFT HTN (hypertension) 05/17/2019 Assessment & Plan (01/28/2022 7:50 AM CAREER COUNSELOR): Patient is well controlled. Continue current treatment. Assessment & Plan (07/26/2021 7:40 AM CDT): CBC Chem 7 Assessment & Plan (07/19/2020 9:39 AM CDT): Patient is well controlled. Continue current treatment. Assessment & Plan (11/16/2019 8:37 AM CAREER COUNSELOR): Order lab Assessment & Plan (05/17/2019 9:04 AM CDT): Patient is well controlled. Continue current treatment. Osteoarthritis 05/17/2019 Assessment & Plan (01/28/2022 7:51 AM CAREER COUNSELOR): Patient is well controlled. Continue current treatment. Assessment & Plan (07/19/2020 9:39 AM CDT): Patient is well controlled. Continue current treatment. Assessment & Plan (11/16/2019 8:37 AM CAREER COUNSELOR): No new orders Assessment & Plan (05/17/2019 9:04 AM CDT): Patient is well controlled. Continue current treatment. Resolved Problems Problem Noted Date Diagnosed Date Resolved Date BMI 33.0-33.9,adult 07/26/2021 01/28/20 22 Assessment & Plan (07/26/2021 7:42 AM CDT): She is exercising regularly. She is watching her diet. Neck swelling 11/16/2019 07/26/2021 Assessment & Plan (11/16/2019 8:42 AM CAREER COUNSELOR): Fu ER Doing well No new orders Annual physical exam 09/15/2019 08 023 Assessment & Plan (01/28/2022 7:50 AM CAREER COUNSELOR): Patient is well controlled. Continue current treatment. Annual physical exam 05/17/2019 022 Assessment & Plan (01/25/2021 10:04 AM CAREER COUNSELOR): All lab utd Mammogram utd Colonoscopy utd [...] on file Legal Sex Female 11:14 AM CAREER COUNSELOR Gender Identity Not on file Sexual Orientation [...] HEPATITIS C ANTIBODY Routine 12/26/2021 7:55 AM CAREER COUNSELOR Primary hypertension Dyslipidemia BMI 33.0-33.9,adult Contact with and (suspected) exposure to potentially hazardous body fluids SCREENING MAMMOGRAM Schedule Routine, Read Routine (OP Routine) 09/03/2021 COLONOSCOPY Routine 06/15/2019 from Last 3 Months or Most Recently Relevant to Health Maintenance Results * Hepatitis C antibody (12/26/2021 7:55 AM CAREER COUNSELOR) Hep C Ab <0.1 0.0 - 0.9 s/co ratio [facility] - 01 Comment: Negative: < 0.8 Indeterminate: 0.8 - 0.9 Positive: > 0.9 The CDC recommends that a positive HCV antibody result be followed up with a HCV Nucleic Acid Amplification test (924226). Blood specimen (specimen) 12/26/2021 7:55 AM CAREER COUNSELOR 12/26/2021 Narrative [facility] - 12/27/2021 7:36 AM CAREER COUNSELOR Performed at: [facility] [address] [id number] Yarn Dumper: Ian Wilkerson PhD, Phone: [phone] us Yeison Serrato DO LAB MICROBIOLOGY - GENER AL ORDERABLES Final Result [facility] - 01 * Screening Mammogram (09/03/2021) Anatomical Region Laterality Modality Breast N/A Mammography us Historical Provider IMG MAMMO PROCEDURES Inez l Result * Colonoscopy (06/15/2019) Anatomical Region Laterality Modality Other us Historical Provider ENDOSCOPY PROCEDURES Inez l Result from Last 3 Months or Most Recently Relevant to Health Maintenance Insurance [facility] H[facility]/PPO Address: [address] [address] [place] [address] [facility] MEDICARE ADVANTAGE [facility] Address: [address] [address] [place] [address] Care Teams Sound Equipment Mechanic Relationship Specialty Start Date End Date Yeison Serrato DO PCP - General Family Medicine 05/12/19 Yeison Serrato DO [address] [facility] [address] [place] [address] 05/12/19
--- OUTSIDE RECORDS SUMMARY | 2025-03-10 13:26 | XMS_ITS | Encounter Summary ---
Author Organization [facility] Facility Care Team Providers Care Contact Center Agent Name Role Phone Yeison Serrato DO Primary Care Provider + [phone] Yeison Serrato DO Primary Care Provider + [phone] Yeison Serrato DO Primary Care Provider + Yeison Serrato DO Unavailable [phone] Encounter Details Date Type Department Care Team (Latest Contact Info) Description 06/28/2016 Orders Only [facility] CLINCONV Provider, MD Aster [address] [place] [address] Social History Tobacco Use Types Packs/Day Years Used Date Smoking Tobacco: Never Assessed Comments Unknown Sex and Gender Information Value Date Recorded Sex Assigned at Not on file Legal Sex Female 11:14 AM DEPUTY SHERIFF GENERALIST/BAILIFF Gender Identity Not on file Sexual Orientation [...] on filedocumented in this encounter Care Teams Contact Center Agent Relationship Specialty Start Date End Date Yeison Serrato DO [address] [place] [address] PCP - General 04/08/16 11/28/16 Yeison Serrato DO [address] [place] [address] PCP - General 11/29/16 05/11/19 Yeison Serrato DO [address] [place] [address] PCP - General Family Medicine 05/12/19 Yeison Serrato DO [address] [place] [address] 05/12/19 documented as of this encounter
--- OUTSIDE RECORDS SUMMARY | 2025-03-10 13:27 | XMS_ITS | Clinical Summary ---
Author Organization [facility] [place] Address [address] [place] [address] Care Team Providers Care Woods Superintendent Name Role Phone Yeison Serrato DO Primary Care Provider + Yeison Serrato DO Unavailable [phone] Allergies Active Allergy Reactions Criticality Noted Date [...] 07/26/2021 Assessment & Plan (01/28/2022 7:50 AM FEDERAL DISTRICT LAW CLERK): Patient is well controlled. Continue current treatment. Assessment & Plan (07/26/2021 7:41 AM CDT): Lipid profile and LFT HTN (hypertension) 05/17/2019 Assessment & Plan (01/28/2022 7:50 AM FEDERAL DISTRICT LAW CLERK): Patient is well controlled. Continue current treatment. Assessment & Plan (07/26/2021 7:40 AM CDT): CBC Chem 7 Assessment & Plan (07/19/2020 9:39 AM CDT): Patient is well controlled. Continue current treatment. Assessment & Plan (11/16/2019 8:37 AM FEDERAL DISTRICT LAW CLERK): Order lab Assessment & Plan (05/17/2019 9:04 AM CDT): Patient is well controlled. Continue current treatment. Osteoarthritis 05/17/2019 Assessment & Plan (01/28/2022 7:51 AM FEDERAL DISTRICT LAW CLERK): Patient is well controlled. Continue current treatment. Assessment & Plan (07/19/2020 9:39 AM CDT): Patient is well controlled. Continue current treatment. Assessment & Plan (11/16/2019 8:37 AM FEDERAL DISTRICT LAW CLERK): No new orders Assessment & Plan (05/17/2019 9:04 AM CDT): Patient is well controlled. Continue current treatment. Resolved Problems Problem Noted Date Diagnosed Date Resolved Date BMI 33.0-33.9,adult 07/26/2021 01/28/20 22 Assessment & Plan (07/26/2021 7:42 AM CDT): She is exercising regularly. She is watching her diet. Neck swelling 11/16/2019 07/26/2021 Assessment & Plan (11/16/2019 8:42 AM FEDERAL DISTRICT LAW CLERK): Fu ER Doing well No new orders Annual physical exam 09/15/2019 08 023 Assessment & Plan (01/28/2022 7:50 AM FEDERAL DISTRICT LAW CLERK): Patient is well controlled. Continue current treatment. Annual physical exam 05/17/2019 022 Assessment & Plan (01/25/2021 10:04 AM FEDERAL DISTRICT LAW CLERK): All lab utd Mammogram utd Colonoscopy utd [...] on file Legal Sex Female 11:14 AM FEDERAL DISTRICT LAW CLERK Gender Identity Not on file Sexual Orientation [...] Density Scan 1958 Hepatitis B Screening 1976 Pneumococcal vaccine 65+ (1 of 1 - PCV) 2008 Breast Cancer Screening-Mammogram 09/03/2022 021 Zoster Vaccine (2 of 2) 08/19/2023 06/24/2023 Colon Cancer Screening-Colonoscopy 06/15/2024 06/15/2019 Depression Screening 07/09/2024 07/09/2023, 01/28/2022, 01/25/2021, Additional history exists Fall Risk Assessment 07/09/2024 07/09/2023, 05/17/20 19 Well Visit 65+ 07/09/2024 07/09/2023, 01/02, 01/25/2021, Additional history exists Covid-19 Vaccine (3 - 2023-2 5 season) 2024 07/23/2021, 07/02/2021 Influenza Vaccine (Season Ended) 2025 12/10/2022, 10/09/2021, 08/31/2021, Additional history exists DTaP/Tdap/Td Vaccine (2 - Td or Tdap) 09/15/2029 09/15/2019 Colon Cancer Screening-CT Colonography Discontinued 06/15/2019 Colon Cancer Screening-DNA Stool Discontinued 06/15/20 19 Colon Cancer Screening-FIT Discontinued 06/15/2019 Colon Cancer Screening-Sigmoidoscopy Discontinued 06/15/2019 Hepatitis C Screening Completed 12/26/2021 Procedures Procedure Name Priority Date/Time Associated Diagnosis Comments HEPATITIS C ANTIBODY Routine 12/26/2021 7:55 AM FEDERAL DISTRICT LAW CLERK Primary hypertension Dyslipidemia BMI 33.0-33.9,adult Contact with and (suspected) exposure to potentially hazardous body fluids SCREENING MAMMOGRAM Schedule Routine, Read Routine (OP Routine) 09/03/2021 COLONOSCOPY Routine 06/15/2019 from Last 3 Months or Most Recently Relevant to Health Maintenance Results * Hepatitis C antibody (12/26/2021 7:55 AM FEDERAL DISTRICT LAW CLERK) Pathologist [facility] Hep C Ab <0.1 0.0 - 0.9 s/co ratio [facility] - 01 Comment: Negative: < 0.8 Indeterminate: 0.8 - 0.9 Positive: > 0.9 The CDC recommends that a positive HCV antibody result be followed up with a HCV Nucleic Acid Amplification test (168104). Blood specimen (specimen) 12/26/2021 7:55 AM FEDERAL DISTRICT LAW CLERK 12/26/2021 Narrative [facility] - 12/27/2021 7:36 AM FEDERAL DISTRICT LAW CLERK Performed at: [facility] [id number] Clinical Specialist Medical Device: Ian Wilkerson PhD, Phone: [phone] Yeison Serrato DO LAB MICROBIOLOGY - GENER AL ORDERABLES Final Result [facility] - 01 * Screening Mammogram (09/03/2021) Anatomical Region Laterality Modality Breast N/A Mammography Historical Provider IMG MAMMO PROCEDURES Inez l Result * Colonoscopy (06/15/2019) Anatomical Region Laterality Modality Other Historical Provider ENDOSCOPY PROCEDURES Inez l Result from Last 3 Months or Most Recently Relevant to Health Maintenance Insurance [facility] CHOICE PLUS [facility] MEDICARE ADVANTAGE Care Teams Woods Superintendent Relationship Specialty Start Date End Date Yeison Serrato DO PCP - General Family Medicine 05/12/19 Yeison Serrato DO [address] [place] [address] [place] [address] 05/12/19
--- OUTSIDE RECORDS SUMMARY | 2025-03-10 13:58 | XMS_ITS | Clinical Summary ---
Author Organization [facility] Address [address] [place] [address] Care Team Providers Care Client Services Administrator Name Role Phone Yeison Gilliland DO Primary Care Provider [phone] Social History Tobacco Use Types Packs/Day Years [...] age to complete this topic Care Teams Client Services Administrator Relationship Specialty Start Date End Date Yeison Gilliland DO PCP - General 08/17/13
--- OUTSIDE RECORDS SUMMARY | 2025-03-10 13:58 | XMS_ITS | Encounter Summary ---
Author Organization [facility] Care Team Providers Care Envelope Adjuster Name Role Phone Yeison Serrato DO Primary Care Provider + [phone] Yeison Serrato DO Primary Care Provider + [phone] Yeison Serrato DO Primary Care Provider + Yeison Serrato DO Unavailable [phone] Encounter Details Date Type Department Care Team (Latest Contact Info) Description 06/28/2016 Orders Only MMG CLINCONV Provider, MD Aster [address] [place] [address] Social History Tobacco Use Types Packs/Day Years Used Date Smoking Tobacco: Never Assessed Comments Unknown Sex and Gender Information Value Date Recorded Sex Assigned at Not on file Legal Sex Female 11:14 AM COMMUNITY MARKETING MANAGER Gender Identity Not on file Sexual Orientation [...] on filedocumented in this encounter Care Teams Envelope Adjuster Relationship Specialty Start Date End Date Yeison Serrato DO [address] [address] PCP - General 04/08/16 11/28/16 Yeison Serrato DO [address] [address] PCP - General 11/29/16 05/11/19 Yeison Serrato DO [address] [address] PCP - General Family Medicine 05/12/19 Yeison Serrato DO [address] [address] 05/12/19 documented as of this encounter
--- OUTSIDE RECORDS SUMMARY | 2025-03-10 13:59 | XMS_ITS | Referral Summary ---
Author Organization [facility] the [facility] Address [address] [place] [address] Care Team Providers Care Instrument Repairer Steam Plant Name Role Phone Yeison Serrato DO Primary Care Provider + Yeison Serrato DO Unavailable [phone] Allergies Active Allergy Reactions Criticality Noted Date [...] 07/26/2021 Assessment & Plan (01/28/2022 7:50 AM BEAM HOUSE INSPECTOR): Patient is well controlled. Continue current treatment. Assessment & Plan (07/26/2021 7:41 AM CDT): Lipid profile and LFT HTN (hypertension) 05/17/2019 Assessment & Plan (01/28/2022 7:50 AM BEAM HOUSE INSPECTOR): Patient is well controlled. Continue current treatment. Assessment & Plan (07/26/2021 7:40 AM CDT): CBC Chem 7 Assessment & Plan (07/19/2020 9:39 AM CDT): Patient is well controlled. Continue current treatment. Assessment & Plan (11/16/2019 8:37 AM BEAM HOUSE INSPECTOR): Order lab Assessment & Plan (05/17/2019 9:04 AM CDT): Patient is well controlled. Continue current treatment. Osteoarthritis 05/17/2019 Assessment & Plan (01/28/2022 7:51 AM BEAM HOUSE INSPECTOR): Patient is well controlled. Continue current treatment. Assessment & Plan (07/19/2020 9:39 AM CDT): Patient is well controlled. Continue current treatment. Assessment & Plan (11/16/2019 8:37 AM BEAM HOUSE INSPECTOR): No new orders Assessment & Plan (05/17/2019 9:04 AM CDT): Patient is well controlled. Continue current treatment. Resolved Problems Problem Noted Date Diagnosed Date Resolved Date BMI 33.0-33.9,adult 07/26/2021 01/28/20 22 Assessment & Plan (07/26/2021 7:42 AM CDT): She is exercising regularly. She is watching her diet. Neck swelling 11/16/2019 07/26/2021 Assessment & Plan (11/16/2019 8:42 AM BEAM HOUSE INSPECTOR): Fu ER Doing well No new orders Annual physical exam 09/15/2019 08 023 Assessment & Plan (01/28/2022 7:50 AM BEAM HOUSE INSPECTOR): Patient is well controlled. Continue current treatment. Annual physical exam 05/17/2019 022 Assessment & Plan (01/25/2021 10:04 AM BEAM HOUSE INSPECTOR): All lab utd Mammogram utd Colonoscopy utd [...] on file Legal Sex Female 11:14 AM BEAM HOUSE INSPECTOR Gender Identity Not on file Sexual Orientation [...] HEPATITIS C ANTIBODY Routine 12/26/2021 7:55 AM BEAM HOUSE INSPECTOR Primary hypertension Dyslipidemia BMI 33.0-33.9,adult Contact with and (suspected) exposure to potentially hazardous body fluids SCREENING MAMMOGRAM Schedule Routine, Read Routine (OP Routine) 09/03/2021 COLONOSCOPY Routine 06/15/2019 from Last 3 Months or Most Recently Relevant to Health Maintenance Results * Hepatitis C antibody (12/26/2021 7:55 AM BEAM HOUSE INSPECTOR) Hep C Ab <0.1 0.0 - 0.9 s/co ratio [facility] - 01 Comment: Negative: < 0.8 Indeterminate: 0.8 - 0.9 Positive: > 0.9 The CDC recommends that a positive HCV antibody result be followed up with a HCV Nucleic Acid Amplification test ([id number]). Blood specimen (specimen) 12/26/2021 7:55 AM BEAM HOUSE INSPECTOR 12/26/2021 Narrative [facility] - 12/27/2021 7:36 AM BEAM HOUSE INSPECTOR Performed at: [facility] Lab[address] [id number] [employer] Advisor: Ian Wilkerson PhD, Phone: [phone] us Yeison Serrato DO LAB MICROBIOLOGY - GENER AL ORDERABLES Final Result [facility] - 01 * Screening Mammogram (09/03/2021) Anatomical Region Laterality Modality Breast N/A Mammography us Historical Provider IMG MAMMO PROCEDURES Inez l Result * Colonoscopy (06/15/2019) Anatomical Region Laterality Modality Other us Historical Provider ENDOSCOPY PROCEDURES Inez l Result from Last 3 Months or Most Recently Relevant to Health Maintenance Insurance [facility] H[facility]/PPO Address: [address] [address] [place] [address] [facility] MEDICARE ADVANTAGE [facility] Address: [address] [address] [place] [address] Care Teams Instrument Repairer Steam Plant Relationship Specialty Start Date End Date Yeison Serrato DO PCP - General Family Medicine 05/12/19 Yeison Serrato DO [address] [facility] [address] [place] [address] 05/12/19
--- OUTSIDE RECORDS SUMMARY | 2025-03-10 13:59 | XMS_ITS | Clinical Summary ---
Author Organization [facility] at [facility] Office [place] Address [address] [place] [address] Care Team Providers Care Production Estimator Name Role Phone Yeison Serrato DO Primary Care Provider + Yeison Serrato DO Unavailable [phone] Allergies Active Allergy Reactions Criticality Noted Date [...] 07/26/2021 Assessment & Plan (01/28/2022 7:50 AM LATHE MACHINIST): Patient is well controlled. Continue current treatment. Assessment & Plan (07/26/2021 7:41 AM CDT): Lipid profile and LFT HTN (hypertension) 05/17/2019 Assessment & Plan (01/28/2022 7:50 AM LATHE MACHINIST): Patient is well controlled. Continue current treatment. Assessment & Plan (07/26/2021 7:40 AM CDT): CBC Chem 7 Assessment & Plan (07/19/2020 9:39 AM CDT): Patient is well controlled. Continue current treatment. Assessment & Plan (11/16/2019 8:37 AM LATHE MACHINIST): Order lab Assessment & Plan (05/17/2019 9:04 AM CDT): Patient is well controlled. Continue current treatment. Osteoarthritis 05/17/2019 Assessment & Plan (01/28/2022 7:51 AM LATHE MACHINIST): Patient is well controlled. Continue current treatment. Assessment & Plan (07/19/2020 9:39 AM CDT): Patient is well controlled. Continue current treatment. Assessment & Plan (11/16/2019 8:37 AM LATHE MACHINIST): No new orders Assessment & Plan (05/17/2019 9:04 AM CDT): Patient is well controlled. Continue current treatment. Resolved Problems Problem Noted Date Diagnosed Date Resolved Date BMI 33.0-33.9,adult 07/26/2021 01/28/20 22 Assessment & Plan (07/26/2021 7:42 AM CDT): She is exercising regularly. She is watching her diet. Neck swelling 11/16/2019 07/26/2021 Assessment & Plan (11/16/2019 8:42 AM LATHE MACHINIST): Fu ER Doing well No new orders Annual physical exam 09/15/2019 08 023 Assessment & Plan (01/28/2022 7:50 AM LATHE MACHINIST): Patient is well controlled. Continue current treatment. Annual physical exam 05/17/2019 022 Assessment & Plan (01/25/2021 10:04 AM LATHE MACHINIST): All lab utd Mammogram utd Colonoscopy utd [...] on file Legal Sex Female 11:14 AM LATHE MACHINIST Gender Identity Not on file Sexual Orientation [...] HEPATITIS C ANTIBODY Routine 12/26/2021 7:55 AM LATHE MACHINIST Primary hypertension Dyslipidemia BMI 33.0-33.9,adult Contact with and (suspected) exposure to potentially hazardous body fluids SCREENING MAMMOGRAM Schedule Routine, Read Routine (OP Routine) 09/03/2021 COLONOSCOPY Routine 06/15/2019 from Last 3 Months or Most Recently Relevant to Health Maintenance Results * Hepatitis C antibody (12/26/2021 7:55 AM LATHE MACHINIST) Pathologist [facility] Hep C Ab <0.1 0.0 - 0.9 s/co ratio [facility] - 01 Comment: Negative: < 0.8 Indeterminate: 0.8 - 0.9 Positive: > 0.9 The CDC recommends that a positive HCV antibody result be followed up with a HCV Nucleic Acid Amplification test (414355). Blood specimen (specimen) 12/26/2021 7:55 AM LATHE MACHINIST 12/26/2021 Narrative [facility] - 12/27/2021 7:36 AM LATHE MACHINIST Performed at: [facility] [id number] Personal Shopper: Ian Wilkerson PhD, Phone: [phone] Yeison Serrato DO LAB MICROBIOLOGY - GENER AL ORDERABLES Final Result [facility] - 01 * Screening Mammogram (09/03/2021) Anatomical Region Laterality Modality Breast N/A Mammography Historical Provider IMG MAMMO PROCEDURES Inez l Result * Colonoscopy (06/15/2019) Anatomical Region Laterality Modality Other Historical Provider ENDOSCOPY PROCEDURES Inez l Result from Last 3 Months or Most Recently Relevant to Health Maintenance Insurance [facility] CHOICE PLUS [facility] HMO/PPO Address: [address] [address] [place] [address] [facility] MEDICARE ADVANTAGE [facility] MEDICARE Address: [address] [address] [place] [address] Care Teams Production Estimator Relationship Specialty Start Date End Date Yeison Serrato DO PCP - General Family Medicine 05/12/19 Yeison Serrato DO [address] [place] [address] [place] [address] 05/12/19
--- NOTE | 2025-03-10 14:52 | ECG_ITS ---
Test Date: 2025-03-10 15:29:40 Measurements Intervals [place] Rate: 80 P: 31 [place]: 141 QRS: 38 QRSD: 100 T: 30 QT: 372 QTc: 431 Interpretive Statements SINUS RHYTHM NORMAL ECG No previous ECG available for comparison Electronically Signed On 03-10-2025 15:33:34 CDT by Gurpreet Humphrey D.O.
[2025-03-10 14:59] LABS: Hematocrit 41.9 % (37.0-47.0); Hemoglobin 14.2 g/dL (12.0-15.0)
[2025-03-10 15:10] LABS: Albumin Level 4.3 g/dL (3.5-5.1); Estimated Glomerular Filt Rate > 60
--- OUTSIDE RECORDS SUMMARY | 2025-03-10 15:12 | XMS_ITS | Referral Summary ---
Author Organization [facility] at the [facility] Address [address] [place] [address] Care Team Providers Care Meat Cutter Name Role Phone Yeison Serrato DO Primary Care Provider + Yeison Serrato DO Unavailable [phone] Allergies Active Allergy Reactions Criticality Noted Date [...] 07/26/2021 Assessment & Plan (01/28/2022 7:50 AM COMMUNICATIONS EQUIPMENT OPERATOR): Patient is well controlled. Continue current treatment. Assessment & Plan (07/26/2021 7:41 AM CDT): Lipid profile and LFT HTN (hypertension) 05/17/2019 Assessment & Plan (01/28/2022 7:50 AM COMMUNICATIONS EQUIPMENT OPERATOR): Patient is well controlled. Continue current treatment. Assessment & Plan (07/26/2021 7:40 AM CDT): CBC Chem 7 Assessment & Plan (07/19/2020 9:39 AM CDT): Patient is well controlled. Continue current treatment. Assessment & Plan (11/16/2019 8:37 AM COMMUNICATIONS EQUIPMENT OPERATOR): Order lab Assessment & Plan (05/17/2019 9:04 AM CDT): Patient is well controlled. Continue current treatment. Osteoarthritis 05/17/2019 Assessment & Plan (01/28/2022 7:51 AM COMMUNICATIONS EQUIPMENT OPERATOR): Patient is well controlled. Continue current treatment. Assessment & Plan (07/19/2020 9:39 AM CDT): Patient is well controlled. Continue current treatment. Assessment & Plan (11/16/2019 8:37 AM COMMUNICATIONS EQUIPMENT OPERATOR): No new orders Assessment & Plan (05/17/2019 9:04 AM CDT): Patient is well controlled. Continue current treatment. Resolved Problems Problem Noted Date Diagnosed Date Resolved Date BMI 33.0-33.9,adult 07/26/2021 01/28/20 22 Assessment & Plan (07/26/2021 7:42 AM CDT): She is exercising regularly. She is watching her diet. Neck swelling 11/16/2019 07/26/2021 Assessment & Plan (11/16/2019 8:42 AM COMMUNICATIONS EQUIPMENT OPERATOR): Fu ER Doing well No new orders Annual physical exam 09/15/2019 08 023 Assessment & Plan (01/28/2022 7:50 AM COMMUNICATIONS EQUIPMENT OPERATOR): Patient is well controlled. Continue current treatment. Annual physical exam 05/17/2019 022 Assessment & Plan (01/25/2021 10:04 AM COMMUNICATIONS EQUIPMENT OPERATOR): All lab utd Mammogram utd Colonoscopy utd [...] on file Legal Sex Female 11:14 AM COMMUNICATIONS EQUIPMENT OPERATOR Gender Identity Not on file Sexual Orientation [...] HEPATITIS C ANTIBODY Routine 12/26/2021 7:55 AM COMMUNICATIONS EQUIPMENT OPERATOR Primary hypertension Dyslipidemia BMI 33.0-33.9,adult Contact with and (suspected) exposure to potentially hazardous body fluids SCREENING MAMMOGRAM Schedule Routine, Read Routine (OP Routine) 09/03/2021 COLONOSCOPY Routine 06/15/2019 from Last 3 Months or Most Recently Relevant to Health Maintenance Results * Hepatitis C antibody (12/26/2021 7:55 AM COMMUNICATIONS EQUIPMENT OPERATOR) Hep C Ab <0.1 0.0 - 0.9 s/co ratio [facility] - 01 Comment: Negative: < 0.8 Indeterminate: 0.8 - 0.9 Positive: > 0.9 The CDC recommends that a positive HCV antibody result be followed up with a HCV Nucleic Acid Amplification test (617670). Blood specimen (specimen) 12/26/2021 7:55 AM COMMUNICATIONS EQUIPMENT OPERATOR 12/26/2021 Narrative [facility] - 12/27/2021 7:36 AM COMMUNICATIONS EQUIPMENT OPERATOR Performed at: [facility] [id number] Electrical Power Engineer: Ian Wilkerson PhD, Phone: [phone] us Yeison Serrato DO LAB MICROBIOLOGY - GENER AL ORDERABLES Final Result [facility] - 01 * Screening Mammogram (09/03/2021) Anatomical Region Laterality Modality Breast N/A Mammography us Historical Provider IMG MAMMO PROCEDURES Inez l Result * Colonoscopy (06/15/2019) Anatomical Region Laterality Modality Other us Historical Provider ENDOSCOPY PROCEDURES Inez l Result from Last 3 Months or Most Recently Relevant to Health Maintenance Insurance [facility] HMO/PPO Address: [address] [address] [place] [address] [facility] MEDICARE ADVANTAGE [facility] MEDICARE Address: [address] [address] [place] [address] Care Teams Meat Cutter Relationship Specialty Start Date End Date Yeison Serrato DO PCP - General Family Medicine 05/12/19 Yeison Serrato DO [address] [place] [address] 05/12/19
--- OUTSIDE RECORDS SUMMARY | 2025-03-10 15:12 | XMS_ITS | Clinical Summary ---
Author Organization [facility] Address [address] [place] [address] Care Team Providers Care Putter In Name Role Phone Yeison Gilliland DO Primary Care Provider [phone] Social History Tobacco Use Types Packs/Day Years [...] age to complete this topic Care Teams Putter In Relationship Specialty Start Date End Date Yeison Gilliland DO PCP - General 08/17/13
--- OUTSIDE RECORDS SUMMARY | 2025-03-10 15:12 | XMS_ITS | Encounter Summary ---
Author Organization [facility] Facility Care Team Providers Care Lathe Set Up Operator Name Role Phone Yeison Serrato DO Primary Care Provider + [phone] Yeison Serrato DO Primary Care Provider + [phone] Yeison Serrato DO Primary Care Provider + Yeison Serrato DO Unavailable [phone] Encounter Details Date Type Department Care Team (Latest Contact Info) Description 06/28/2016 Orders Only MMG CLINCONV Provider, MD Aster [address] [place] [address] Social History Tobacco Use Types Packs/Day Years Used Date Smoking Tobacco: Never Assessed Comments Unknown Sex and Gender Information Value Date Recorded Sex Assigned at Not on file Legal Sex Female 11:14 AM RN DOCUMENTATION Gender Identity Not on file Sexual Orientation [...] on filedocumented in this encounter Care Teams Lathe Set Up Operator Relationship Specialty Start Date End Date Yeison Serrato DO [address] [place] [address] PCP - General 04/08/16 11/28/16 Yeison Serrato DO [address] [place] [address] PCP - General 11/29/16 05/11/19 Yeison Serrato DO [address] [place] [address] PCP - General Family Medicine 05/12/19 Yeison Serrato DO [address] [place] [address] 05/12/19 documented as of this encounter
--- OUTSIDE RECORDS SUMMARY | 2025-03-10 15:12 | XMS_ITS | Clinical Summary ---
Author Organization [facility] at [facility] [place] Address [address] [place] [address] Care Team Providers Care Pipe Cleaner Name Role Phone Yeison Serrato DO Primary Care Provider + Yeison Serrato DO Unavailable [phone] Allergies Active Allergy Reactions Criticality Noted Date [...] 07/26/2021 Assessment & Plan (01/28/2022 7:50 AM EDI PROGRAMMER): Patient is well controlled. Continue current treatment. Assessment & Plan (07/26/2021 7:41 AM CDT): Lipid profile and LFT HTN (hypertension) 05/17/2019 Assessment & Plan (01/28/2022 7:50 AM EDI PROGRAMMER): Patient is well controlled. Continue current treatment. Assessment & Plan (07/26/2021 7:40 AM CDT): CBC Chem 7 Assessment & Plan (07/19/2020 9:39 AM CDT): Patient is well controlled. Continue current treatment. Assessment & Plan (11/16/2019 8:37 AM EDI PROGRAMMER): Order lab Assessment & Plan (05/17/2019 9:04 AM CDT): Patient is well controlled. Continue current treatment. Osteoarthritis 05/17/2019 Assessment & Plan (01/28/2022 7:51 AM EDI PROGRAMMER): Patient is well controlled. Continue current treatment. Assessment & Plan (07/19/2020 9:39 AM CDT): Patient is well controlled. Continue current treatment. Assessment & Plan (11/16/2019 8:37 AM EDI PROGRAMMER): No new orders Assessment & Plan (05/17/2019 9:04 AM CDT): Patient is well controlled. Continue current treatment. Resolved Problems Problem Noted Date Diagnosed Date Resolved Date BMI 33.0-33.9,adult 07/26/2021 01/28/20 22 Assessment & Plan (07/26/2021 7:42 AM CDT): She is exercising regularly. She is watching her diet. Neck swelling 11/16/2019 07/26/2021 Assessment & Plan (11/16/2019 8:42 AM EDI PROGRAMMER): Fu ER Doing well No new orders Annual physical exam 09/15/2019 08 023 Assessment & Plan (01/28/2022 7:50 AM EDI PROGRAMMER): Patient is well controlled. Continue current treatment. Annual physical exam 05/17/2019 022 Assessment & Plan (01/25/2021 10:04 AM EDI PROGRAMMER): All lab utd Mammogram utd Colonoscopy utd [...] on file Legal Sex Female 11:14 AM EDI PROGRAMMER Gender Identity Not on file Sexual Orientation [...] HEPATITIS C ANTIBODY Routine 12/26/2021 7:55 AM EDI PROGRAMMER Primary hypertension Dyslipidemia BMI 33.0-33.9,adult Contact with and (suspected) exposure to potentially hazardous body fluids SCREENING MAMMOGRAM Schedule Routine, Read Routine (OP Routine) 09/03/2021 COLONOSCOPY Routine 06/15/2019 from Last 3 Months or Most Recently Relevant to Health Maintenance Results * Hepatitis C antibody (12/26/2021 7:55 AM EDI PROGRAMMER) Pathologist [facility] Hep C Ab <0.1 0.0 - 0.9 s/co ratio [facility] - 01 Comment: Negative: < 0.8 Indeterminate: 0.8 - 0.9 Positive: > 0.9 The CDC recommends that a positive HCV antibody result be followed up with a HCV Nucleic Acid Amplification test (252418). Blood specimen (specimen) 12/26/2021 7:55 AM EDI PROGRAMMER 12/26/2021 Narrative [facility] - 12/27/2021 7:36 AM EDI PROGRAMMER Performed at: [facility] [id number] Control Electrician: Ian Wilkerson PhD, Phone: [phone] Yeison Serrato DO LAB MICROBIOLOGY - GENER AL ORDERABLES Final Result [facility] - 01 * Screening Mammogram (09/03/2021) Anatomical Region Laterality Modality Breast N/A Mammography Historical Provider IMG MAMMO PROCEDURES Inez l Result * Colonoscopy (06/15/2019) Anatomical Region Laterality Modality Other Historical Provider ENDOSCOPY PROCEDURES Inez l Result from Last 3 Months or Most Recently Relevant to Health Maintenance Insurance [facility] CHOICE PLUS [facility] MEDICARE ADVANTAGE Care Teams Pipe Cleaner Relationship Specialty Start Date End Date Yeison Serrato DO PCP - General Family Medicine 05/12/19 Yeisno Serrato DO [address] [place] [address] [place] [address] 05/12/19
== END 2025-03-10 14:42 | disposition home or self-care (01) ==
PROVIDERS: PCP Family Medicine; Visit Provider Orthopaedic Surgery
DX: R09.89 Other specified symptoms and signs involving the circulatory and respiratory systems (principal); S46.112A Strain of muscle, fascia and tendon of long head of biceps, left arm, initial encounter; M62.512 Muscle wasting and atrophy, not elsewhere classified, left shoulder; E78.2 Mixed hyperlipidemia; M19.012 Primary osteoarthritis, left shoulder; X58.XXXA Exposure to other specified factors, initial encounter
CPT/HCPCS: 36415; 73200; 82040; 82565; 85014; 85018; 93005

== ENCOUNTER 2025-04-26 14:51 | Outpatient (CLI) | payer MEDICARE, SELFPAY ==
--- NOTE | ~2025-04-26 | MM_ITS ---
EXAMINATION: MM screening naren BI w karen HISTORY: Screening TECHNIQUE: Craniocaudal and mediolateral oblique 3-D tomosynthesis images were obtained and synthetic 2-D images were generated. CAD analysis was submitted and interpreted. COMPARISON: Comparison to multiple prior studies sequentially, with oldest reviewed study dated 05/2018. BREAST PARENCHYMAL COMPOSITION: Not dense: There are scattered areas of fibroglandular density. FINDINGS: There is no evidence of suspicious mass, calcification, or architectural distortion to sugg est malignancy in either breast. There has been no suspicious interval change. IMPRESSION: 1. No mammographic evidence of malignancy. 2. Recommend routine screening mammography in one year. BI-RADS Category 1: Negative Reviewed, dictated and finalized at location A.
== END 2025-04-26 14:52 | disposition home or self-care (01) ==
LOC: MICIMG 14:52
PROVIDERS: PCP Family Medicine; Visit Provider Nurse Practitioner
DX: Z12.31 Encounter for screening mammogram for malignant neoplasm of breast (principal)
CPT/HCPCS: 77063; 77067

== ENCOUNTER 2025-06-15 11:57 | Outpatient (CLI) | payer MEDICARE, SELFPAY ==
--- OUTSIDE RECORDS SUMMARY | 2025-06-15 12:15 | XMS_ITS | Encounter Summary ---
Author Organization [facility] Facility Care Team Providers Care Cable Former Name Role Phone Yeison Serrato DO Primary Care Provider + [phone] Yeison Serrato DO Primary Care Provider + [phone] Yeison Serrato DO Primary Care Provider + Yeison Serrato DO Unavailable [phone] Encounter Details Date Type Department Care Team (Latest Contact Info) Description 06/28/2016 Orders Only MMG CLINCONV ProviderAster MD [address] [place] [address] Social History Tobacco Use Types Packs/Day Years Used Date Smoking Tobacco: Never Assessed Comments Unknown Sex and Gender Information Value Date Recorded Sex Assigned at Not on file Legal Sex Female 11:14 AM COMPLIANCE REPRESENTATIVE DEALER Gender Identity Not on file Sexual Orientation [...] AM CDT Ordered by an unspecified provider. Historical Provider Final Res ult documented in this encounter Visit Diagnoses Not on filedocumented in this encounter Care Teams Cable Former Relationship Specialty Start Date End Date Yeison Serrato DO [address] [place] [address] PCP - General 5/9/16 12/29/16 Yeison Serrato DO [address] [place] [address] PCP - General 11/29/16 05/11/19 Yeison Serrato DO [address] [place] [address] PCP - General Family Medicine 05/12/19 Yeison Serrato DO [address] [place] [address] 05/12/19 documented as of this encounter
--- OUTSIDE RECORDS SUMMARY | 2025-06-15 12:15 | XMS_ITS | Clinical Summary ---
Author Organization [facility] (formerly [facility])[3] at the [facility] Office Center Address [address] [place] [address] Care Team Providers Care Masonry Inspector Name Role Phone Yeison Serrato DO Primary Care Provider + Yeison Serrato DO Unavailable [phone] Allergies Active Allergy Reactions Criticality Noted Date [...] 07/26/2021 Assessment & Plan (01/28/2022 7:50 AM LEAD PROGRAMMER ANALYST): Patient is well controlled. Continue current treatment. Assessment & Plan (07/26/2021 7:41 AM CDT): Lipid profile and LFT HTN (hypertension) 05/17/2019 Assessment & Plan (01/28/2022 7:50 AM LEAD PROGRAMMER ANALYST): Patient is well controlled. Continue current treatment. Assessment & Plan (07/26/2021 7:40 AM CDT): CBC Chem 7 Assessment & Plan (07/19/2020 9:39 AM CDT): Patient is well controlled. Continue current treatment. Assessment & Plan (11/16/2019 8:37 AM LEAD PROGRAMMER ANALYST): Order lab Assessment & Plan (05/17/2019 9:04 AM CDT): Patient is well controlled. Continue current treatment. Osteoarthritis 05/17/2019 Assessment & Plan (01/28/2022 7:51 AM LEAD PROGRAMMER ANALYST): Patient is well controlled. Continue current treatment. Assessment & Plan (07/19/2020 9:39 AM CDT): Patient is well controlled. Continue current treatment. Assessment & Plan (11/16/2019 8:37 AM LEAD PROGRAMMER ANALYST): No new orders Assessment & Plan (05/17/2019 9:04 AM CDT): Patient is well controlled. Continue current treatment. Resolved Problems Problem Noted Date Diagnosed Date Resolved Date BMI 33.0-33.9,adult 07/26/2021 01/28/20 22 Assessment & Plan (07/26/2021 7:42 AM CDT): She is exercising regularly. She is watching her diet. Neck swelling 11/16/2019 07/26/2021 Assessment & Plan (11/16/2019 8:42 AM LEAD PROGRAMMER ANALYST): Fu ER Doing well No new orders Annual physical exam 09/15/2019 023 Assessment & Plan (01/28/2022 7:50 AM LEAD PROGRAMMER ANALYST): Patient is well controlled. Continue current treatment. Annual physical exam 05/17/2019 022 Assessment & Plan (01/25/2021 10:04 AM LEAD PROGRAMMER ANALYST): All lab utd Mammogram utd Colonoscopy utd [...] on file Legal Sex Female 11:14 AM LEAD PROGRAMMER ANALYST Gender Identity Not on file Sexual Orientation [...] 8:51 AM CDT Height 157.5 cm (5' 2) 07/09/2023 8:51 AM CDT Body Mass Index [...] HEPATITIS C ANTIBODY Routine 12/26/2021 7:55 AM LEAD PROGRAMMER ANALYST Primary hypertension Dyslipidemia BMI 33.0-33.9,adult Contact with and (suspected) exposure to potentially hazardous body fluids SCREENING MAMMOGRAM Schedule Routine, Read Routine (OP Routine) 09/03/2021 COLONOSCOPY Routine 06/15/2019 from Last 3 Months or Most Recently Relevant to Health Maintenance Results * Hepatitis C antibody (12/26/2021 7:55 AM LEAD PROGRAMMER ANALYST) Pathologist [facility] Hep C Ab <0.1 0.0 - 0.9 s/co ratio [facility] - 01 Comment: Negative: < 0.8 Indeterminate: 0.8 - 0.9 Positive: > 0.9 The CDC recommends that a positive HCV antibody result be followed up with a HCV Nucleic Acid Amplification test (409639). Blood specimen (specimen) 12/26/2021 7:55 AM LEAD PROGRAMMER ANALYST 12/26/2021 Narrative [facility] - 12/27/2021 7:36 AM LEAD PROGRAMMER ANALYST Performed at: 01 - [facility] [id number] Propeller Engineer: Ian Wilkerson PhD, Phone: [phone] Yeison Serrato DO LAB MICROBIOLOGY - GENER AL ORDERABLES Final Result [facility] - 01 * Screening Mammogram (09/03/2021) Anatomical Region Laterality Modality Breast N/A Mammography Historical Provider IMG MAMMO PROCEDURES Inez l Result * Colonoscopy (06/15/2019) Anatomical Region Laterality Modality Other Historical Provider ENDOSCOPY PROCEDURES Inez l Result from Last 3 Months or Most Recently Relevant to Health Maintenance Insurance [facility] CHOICE PLUS [facility] MEDICARE ADVANTAGE Care Teams Masonry Inspector Relationship Specialty Start Date End Date Yeison Serrato DO PCP - General Family Medicine 05/12/19 [place] [address] [place] [address] [place] [address] 05/12/19
--- OUTSIDE RECORDS SUMMARY | 2025-06-15 12:15 | XMS_ITS | Referral Summary ---
Author Organization [facility] Address [address] [place] [address] Care Team Providers Care Business Performance Analyst Name Role Phone Yeison Serrato DO Primary Care Provider + Yeison Serrato DO Unavailable [phone] Allergies Active Allergy Reactions Criticality Noted Date [...] 07/26/2021 Assessment & Plan (01/28/2022 7:50 AM BALLISTICS TEACHER): Patient is well controlled. Continue current treatment. Assessment & Plan (07/26/2021 7:41 AM CDT): Lipid profile and LFT HTN (hypertension) 05/17/2019 Assessment & Plan (01/28/2022 7:50 AM BALLISTICS TEACHER): Patient is well controlled. Continue current treatment. Assessment & Plan (07/26/2021 7:40 AM CDT): CBC Chem 7 Assessment & Plan (07/19/2020 9:39 AM CDT): Patient is well controlled. Continue current treatment. Assessment & Plan (11/16/2019 8:37 AM BALLISTICS TEACHER): Order lab Assessment & Plan (05/17/2019 9:04 AM CDT): Patient is well controlled. Continue current treatment. Osteoarthritis 05/17/2019 Assessment & Plan (01/28/2022 7:51 AM BALLISTICS TEACHER): Patient is well controlled. Continue current treatment. Assessment & Plan (07/19/2020 9:39 AM CDT): Patient is well controlled. Continue current treatment. Assessment & Plan (11/16/2019 8:37 AM BALLISTICS TEACHER): No new orders Assessment & Plan (05/17/2019 9:04 AM CDT): Patient is well controlled. Continue current treatment. Resolved Problems Problem Noted Date Diagnosed Date Resolved Date BMI 33.0-33.9,adult 07/26/2021 01/28/20 22 Assessment & Plan (07/26/2021 7:42 AM CDT): She is exercising regularly. She is watching her diet. Neck swelling 11/16/2019 07/26/2021 Assessment & Plan (11/16/2019 8:42 AM BALLISTICS TEACHER): Fu ER Doing well No new orders Annual physical exam 09/15/2019 023 Assessment & Plan (01/28/2022 7:50 AM BALLISTICS TEACHER): Patient is well controlled. Continue current treatment. Annual physical exam 05/17/2019 022 Assessment & Plan (01/25/2021 10:04 AM BALLISTICS TEACHER): All lab utd Mammogram utd Colonoscopy utd [...] on file Legal Sex Female 11:14 AM BALLISTICS TEACHER Gender Identity Not on file Sexual Orientation [...] HEPATITIS C ANTIBODY Routine 12/26/2021 7:55 AM BALLISTICS TEACHER Primary hypertension Dyslipidemia BMI 33.0-33.9,adult Contact with and (suspected) exposure to potentially hazardous body fluids SCREENING MAMMOGRAM Schedule Routine, Read Routine (OP Routine) 09/03/2021 COLONOSCOPY Routine 06/15/2019 from Last 3 Months or Most Recently Relevant to Health Maintenance Results * Hepatitis C antibody (12/26/2021 7:55 AM BALLISTICS TEACHER) Hep C Ab <0.1 0.0 - 0.9 s/co ratio [facility] - 01 Comment: Negative: < 0.8 Indeterminate: 0.8 - 0.9 Positive: > 0.9 The CDC recommends that a positive HCV antibody result be followed up with a HCV Nucleic Acid Amplification test (639850). Blood specimen (specimen) 12/26/2021 7:55 AM BALLISTICS TEACHER 12/26/2021 Narrative [facility] - 12/27/2021 7:36 AM BALLISTICS TEACHER Performed at: [facility] [id number] Escrow Representative: Ian Wilkerson PhD, Phone: [phone] Yeison Serrato DO LAB MICROBIOLOGY - GENER AL ORDERABLES Final Result Performing Organization Address City/State/[facility] Co de Phone Number [facility] - 01 * Screening Mammogram (09/03/2021) Anatomical Region Laterality Modality Breast N/A Mammography Historical Provider IMG MAMMO PROCEDURES Inez l Result * Colonoscopy (06/15/2019) Anatomical Region Laterality Modality Other Historical Provider ENDOSCOPY PROCEDURES Inez l Result from Last 3 Months or Most Recently Relevant to Health Maintenance Insurance [facility] CHOICE PLUS [facility] HMO/PPO Address: [address] [address] [place] [address] [facility] MEDICARE ADVANTAGE [facility] MEDICARE Address: [address] [address] [place] [address] Care Teams Business Performance Analyst Relationship Specialty Start Date End Date Yeison Serrato DO PCP - General Family Medicine 05/12/19 [place] [address] [place] [address] [place] [address] 05/12/19
--- OUTSIDE RECORDS SUMMARY | 2025-06-15 12:15 | XMS_ITS | Clinical Summary ---
Author Organization [facility] Address [address] [place] [address] Care Team Providers Care Instrument Worker Name Role Phone Yeison Gilliland DO Primary Care Provider [phone] Social History Tobacco Use Types Packs/Day Years [...] 1 - Tdap) 1977 Mammogram Screening 1998 Pneumococcal Vaccine: 50+ Ye ars (1 of 1 - PCV) 2008 Zoster Vaccines (1 of 2) 2008 Dexa Scan (General) 2023 COVID-19 Vaccine ( - 2023-2 5 [...] age to complete this topic Care Teams Instrument Worker Relationship Specialty Start Date End Date Yeison Gilliland DO PCP - General 08/17/13
--- OUTSIDE RECORDS SUMMARY | 2025-06-15 12:15 | XMS_ITS | Data Portability ---
Author Organization [facility] Address [address] [place] [address] Assessment No assessment recorded. Plan of Treatment [...] By Organization Details Last Modified Time 01/06/2024 [id number] A healthy lifestyle: care instructions Not available 01/06/2024 17:37:46 Reason for Referral None Reported. Problems Name Problem SNOMED Code Status Onset Date Resolution Date Notes Provider Name and Address Organization Details Recorded Time Osteoarthritis 987157985 Active 2023 Yeison Serrato DO Attn: Loree joiner,[address] [facility], [place], [address], [facility] 4 17:31:30 Obesity 192205172 Active 2023 Yeison Serrato DO Attn: Loree joiner,[address] [facility], [place], [address], [facility] 4 17:31:31 Hyperlipidemia 51518257 Active 2023 Yeison Serrato DO Attn: Loree joiner,[address] [facility], [place], [address], [facility] 4 17:31:32 Essential hypertension 86374142 Active 2023 Yeison Serrato DO Attn: Loree joiner,[address] , [place], [address] [place] [address] 4 17:31:33 Problem Notes None recorded. Procedures Surgical History Date Name Laterality Status Provider Name and Address Organization Details Recorded Time Arthroscopic Surgery completed Lisa Kyle [facility] 01/06/2024 16:36:13 Imaging Results None recorded. Procedure Notes None recorded. Medical Equipment None Reported. Allergies No known drug allergies Medications Name Sig Start Date Stop Date Status Note LastModified by Organization Details LastModified Time atorvastatin 10 mg tablet Take 1 tablet by mouth once daily active Not Available Not Available No t Available meloxicam 7.5 mg tablet Take 1 tablet by mouth once daily 025 active Not Available Not Available Not Avai lable triamterene 37.5 mg-hydrochloro thiazide 25 mg tablet TAKE 1 TABLET BY MOUTH ONCE DAILY active Not Available Not Available No t Available Vitals Date Recorded Body height Body mass index (BMI) Body weight Oxygen saturation Oxygen saturation in Arterial blood by Pulse oximetry Heart rate Body temperature Systolic And Diastolic Provider Name and Address Organization Details Last Updated DateTime 4 157.48 cm 34.2 kg/m2 30262.7 7 g 95 % 95 % 79 /min 98 [degF] 127/81 mm[Hg] Barbara Eason MA [facility] 4 16:57:50 Social History Question Answer Notes LastModified by Organizat ion Details LastModified Time Tobacco Smoking Status Never Smoker Lisa Kyle [facility], [facility] 01/06/2024 16:37:09 What Was The Date Of Your Most Recent Tobacco Screening? 01/06/2024 [email or web address] Information not available 01/06/2024 Sex: Female Functional Status Question Answer Note LastModified by Organization D etails LastModified Time What is your level of alcohol consumption? None [email or web address] Information not available 01/06/2024 Mental Status None recorded. Family History Relationship Description Onset Age of this Age Resolved Age Notes LastModified by Organization Details LastModified Time Sister Malignant tumor of breast [email or web address] Not available 2023 16:36:26 Sister Malignant neoplasm of ovary [email or web address] Not available 02/06/ 2024 16:36:44 Mother Hypertensive disorder [email or web address] Not available 2023 16:36:34 Medical History Condition Response Coronary Artery Disease N Other N Atrial Fibrillation N High Blood Pressure Y Thyroid Problems N Kidney or Bladder Problems N GI Problems N Depression N COPD N Blood Clots N Eating Disorder N Skin Problems N Anemia N Heart Attack ([place]) N Anxiety Disorder N Diabetes N Muscle, [...] SNOMED-CT Code Diagnosis ICD10 Code Diagnosis Note [id number] Yeison Serrato, DO [facility] [place] [facility] [place] [address] [facility] [address] [facility] [place] [address] 01/06/2024 16:20:00 01/13/2024 16:37:03 Osteoarthritis 202613035 M19.90 mobic 7.5 mg Obesity 547858262 E66.9 healthy diet Hyperlipidemia 68585406 E78.5 atorvastat in 10 mg dailystabl e Essential hypertension 80154860 I10 dyazide 25 mgdoing well Health Concerns Section Related Observation LastModified by Organization Detai ls LastModified Time None Recorded Concern Status LastModified by Organization Details LastModified Time None Recorded Advance Directives Directive None Recorded Payers Insurance Date Sequence Insurance Name Policy Number Policy Ingram Covered Member ID Ingram Member ID Guarantor Name 01/13/2024 1 [facility] (MEDICARE REPLACEMENT/ ADVANTAGE - HMO) [id number] Beatris Oli Borges [id number] Beatris Owen 01/06/2024 1 [employer] CHO[employer] (MEDICARE REPLACEMENT/ ADVANTAGE - PFFS) Beatris Oli Borges [id number] Beatris Owen 01/06/2024 1 [employer] CHO[employer] (MEDICARE REPLACEMENT/ ADVANTAGE - PFFS) [id number] Beatris Borges [id number] Beatris Borges Notes Date Note Type Note Provider Name and Address Organization Details Recorded Time 01/06/2024 text/html establish care Yeison Serrato DO Attn: Accounting,[address] [facility], [place], [address], [facility] 01/06/2024 17:37:49 OBGyn Episode No OBEpisode recorded.
[2025-06-15 13:39] LABS: Hematocrit 40.2 % (37.0-47.0); Hemoglobin 13.2 g/dL (12.0-15.0); Immature Granulocyte Percent A 0.2 % (0-0.5); Lymphocytes Absolute Auto 2.50 K/mm3 (0.9-3.2); Mean Corpuscular HGB Conc 32.8 g/dl (32-36); Mean Corpuscular Hemoglobin 31.7 pg (26-34); Mean Corpuscular Volume 96.6 fl (80-100); Nucleated Red Blood Cells Absolute Auto 0.000 K/mm3 (0.0-0.012); Nucleated Red Blood Cells Perc 0.0 % (0.0-0.2); Platelet Count Result 223 k/mm3 (150-375); Red Blood Count 4.16 M/mm3 (4.2-5.4); White Blood Count 8.2 K/mm3 (4.5-10.0)
[2025-06-15 14:10] LABS: Anion Gap 7 mmol/L (4-12); Blood Urea Nitrogen 12 mg/dL (7-17); Calcium 8.8 mg/dL (8.4-10.2); Carbon Dioxide 29 mmol/L (22-30); Chloride 103 mmol/L (98-107); Estimated Glomerular Filt Rate > 60; Glucose 92 mg/dL (65-110); Potassium 3.3 mmol/L (3.4-5.0); Sodium 139 mmol/L (137-145)
[2025-06-15 14:48] LABS: MRSA (PCR) NOT DETECTED (NOT DETECTE)
== END 2025-06-15 11:58 | disposition home or self-care (01) ==
LOC: ANHSURGERY 12:01
PROVIDERS: Anesthesiology; PCP Family Medicine; Visit Provider Orthopaedic Surgery
DX: Z01.818 Encounter for other preprocedural examination (principal); M12.812 Other specific arthropathies, not elsewhere classified, left shoulder; Z51.81 Encounter for therapeutic drug level monitoring
CPT/HCPCS: 36415; 80048; 85025; 87641

== ENCOUNTER 2025-07-07 03:15 | Day surgery (SDC) | payer MEDICARE, SELFPAY ==
[2025-06-15 12:21] VITALS: BP 138/72; PULSE 72; RESP 16; TEMP 37.1; O2SAT 98; BMI 36.1
--- NOTE | 2025-06-15 12:36 | PC.NURSE ---
Report to the Outpatient Waiting Room, entrance under the green pavilion located off [facility], at time __6:00AM on date ____07/07/25___. Planned Procedure Time: ___7:30PM .? Time changes happen often and if your time is changed the preop area will call you the afternoon before. - You and your visitor will be asked to self-screen and do not enter if you have any COVID symptoms. Please call surgeon if you need to reschedule. - A mask is optional within the hospital at this time. Patients may have clear liquids (water, carbonated beverages, clear teas, apple juice) until 3 hours prior to surgery (4:30AM) with a maximum of 20 ounces. - No food from midnight until time of surgery and no smoking, or chewing tobacco (or any form of nicotine). No chewing gum, candy or mints. Take only the following medications with a SIP of water on the morning of surgery: ___NONE DO NOT STOP ANY OF YOUR OTHER PRESCRIPTION MEDICATIONS PRIOR TO SURGERY EXCEPT THE FOLLOWING Medications to discontinue per physician HOLD ALL NSAIDS(MELOXICAM) AND VITAMINS/SUPPLEMENTS 7 DAYS PRE-OP Date to take last dose 06/29/25 Please no make-up, nail maldivian, hairspray, perfume, deodorant, or body powder the day of surgery.? No jewelry (including any body piercings) or valuables the day of surgery, leave them at home.? Please take a shower or bath the night before, or the morning of, surgery with an antibacterial soap.? Wear comfortable, loose fitting clothing.? - Jewelry must be removed prior to entering the operating room.? Rings and piercings that are not removed may be cut off. - The hospital will not accept responsibility for valuables.? - Please leave all valuables, including medications, at home the day of surgery. If you are going home after surgery, a licensed utility driver must drive you home.? - NO public transportation without another adult if you receive anesthesia. - We recommend that an adult stay with you for 24 hours following discharge. - We also recommend that you do not drive, make important decision, drink alcoholic beverages, or take any drugs that were not prescribed by your health care provider for at least 24 hours after your discharge time. Follow any additional instructions given to you from your surgeon. Telephone instructions given to ____PATIENT & HUSBAND and asked if any additional questions and then verbalized understanding. Patient advised to call surgeon office or pre surgery nurse liaison [phone] if any additional questions.
[2025-07-07] VITALS (13 sets, daily range): BP systolic 108–148; BP diastolic 55–80; PULSE 66–80; RESP 11–22; TEMP 36.4–37.1; O2SAT 93–100
--- NOTE | ~2025-07-07 | XR_ITS ---
EXAMINATION: XR shoulder LT min 2V DATE: 07/07/2025 10:16 INDICATION: Postop left reverse total shoulder arthroplasty TECHNIQUE: 2 views left shoulder FINDINGS: There is a Postop left reverse total shoulder arthroplasty in expected position. Subcutane ous gas with soft tissue swelling are consistent with recent surgery. IMPRESSION: 1. Postop left reverse total shoulder arthroplasty. Reviewed, dictated and finalized at location A.
--- OUTSIDE RECORDS SUMMARY | 2025-07-07 03:18 | XMS_ITS | Clinical Summary ---
Author Organization [facility] Address [address] [place] [address] Care Team Providers Care Adoption Coordinator Name Role Phone Yeison Gilliland DO Primary Care Provider [phone] Social History Tobacco Use Types Packs/Day Years [...] age to complete this topic Care Teams Adoption Coordinator Relationship Specialty Start Date End Date Yeison Gilliland DO PCP - General 08/17/13
--- OUTSIDE RECORDS SUMMARY | 2025-07-07 03:18 | XMS_ITS | Clinical Summary ---
Author Organization [facility] at the [facility] Office Center Address [address] [place] [address] Care Team Providers Care Obgyn Hospitalist Physician Name Role Phone Yeison Serrato DO Primary Care Provider + Yeison Serrato DO Unavailable [phone] Allergies Active Allergy Reactions Criticality Noted Date [...] 07/26/2021 Assessment & Plan (01/28/2022 7:50 AM INTERNET DEVELOPER): Patient is well controlled. Continue current treatment. Assessment & Plan (07/26/2021 7:41 AM CDT): Lipid profile and LFT HTN (hypertension) 05/17/2019 Assessment & Plan (01/28/2022 7:50 AM INTERNET DEVELOPER): Patient is well controlled. Continue current treatment. Assessment & Plan (07/26/2021 7:40 AM CDT): CBC Chem 7 Assessment & Plan (07/19/2020 9:39 AM CDT): Patient is well controlled. Continue current treatment. Assessment & Plan (11/16/2019 8:37 AM INTERNET DEVELOPER): Order lab Assessment & Plan (05/17/2019 9:04 AM CDT): Patient is well controlled. Continue current treatment. Osteoarthritis 05/17/2019 Assessment & Plan (01/28/2022 7:51 AM INTERNET DEVELOPER): Patient is well controlled. Continue current treatment. Assessment & Plan (07/19/2020 9:39 AM CDT): Patient is well controlled. Continue current treatment. Assessment & Plan (11/16/2019 8:37 AM INTERNET DEVELOPER): No new orders Assessment & Plan (05/17/2019 9:04 AM CDT): Patient is well controlled. Continue current treatment. Resolved Problems Problem Noted Date Diagnosed Date Resolved Date BMI 33.0-33.9,adult 07/26/2021 01/28/20 22 Assessment & Plan (07/26/2021 7:42 AM CDT): She is exercising regularly. She is watching her diet. Neck swelling 11/16/2019 07/26/2021 Assessment & Plan (11/16/2019 8:42 AM INTERNET DEVELOPER): Fu ER Doing well No new orders Annual physical exam 09/15/2019 023 Assessment & Plan (01/28/2022 7:50 AM INTERNET DEVELOPER): Patient is well controlled. Continue current treatment. Annual physical exam 05/17/2019 022 Assessment & Plan (01/25/2021 10:04 AM INTERNET DEVELOPER): All lab utd Mammogram utd Colonoscopy utd [...] on file Legal Sex Female 11:14 AM INTERNET DEVELOPER Gender Identity Not on file Sexual Orientation [...] 05/17/20 19 Well Visit 65+ 07/09/2024 07/09/2023, /07/2022, 01/25/2021, Additional history exists Covid-19 Vaccine (3 - 2023-2 5 season) 2024 07/23/2021, 07/02/2021 Influenza Vaccine (#1) 2025 , 10/09/2021, 08/31/2021, Additional history exists DTaP/Tdap/Td Vaccine (2 - Td or Tdap) 09/15/2029 09/15/2019 Colon Cancer Screening-CT Colonography Discontinued 06/15/2019 Colon Cancer Screening-DNA Stool Discontinued 06/15/20 19 Colon Cancer Screening-FIT Discontinued 06/15/2019 Colon Cancer Screening-Sigmoidoscopy Discontinued 06/15/2019 Hepatitis C Screening Completed 12/26/2021 Procedures Procedure Name Priority Date/Time Associated Diagnosis Comments HEPATITIS C ANTIBODY Routine 12/26/2021 7:55 AM INTERNET DEVELOPER Primary hypertension Dyslipidemia BMI 33.0-33.9,adult Contact with and (suspected) exposure to potentially hazardous body fluids SCREENING MAMMOGRAM Schedule Routine, Read Routine (OP Routine) 09/03/2021 COLONOSCOPY Routine 06/15/2019 from Last 3 Months or Most Recently Relevant to Health Maintenance Results * Hepatitis C antibody (12/26/2021 7:55 AM INTERNET DEVELOPER) Pathologist [facility] Hep C Ab <0.1 0.0 - 0.9 s/co ratio [facility] - 01 Comment: Negative: < 0.8 Indeterminate: 0.8 - 0.9 Positive: > 0.9 The CDC recommends that a positive HCV antibody result be followed up with a HCV Nucleic Acid Amplification test ([id number]). Blood specimen (specimen) 12/26/2021 7:55 AM INTERNET DEVELOPER 12/26/2021 Narrative [facility] - 12/27/2021 7:36 AM INTERNET DEVELOPER Performed at: 01 - [facility] [id number] Mailing Section Clerk: Ian Wilkerson PhD, Phone: [phone] Yeison Serrato DO LAB MICROBIOLOGY - GENER AL ORDERABLES Final Result [facility] - 01 * Screening Mammogram (09/03/2021) Anatomical Region Laterality Modality Breast N/A Mammography Historical Provider IMG MAMMO PROCEDURES Inez l Result * Colonoscopy (06/15/2019) Anatomical Region Laterality Modality Other Historical Provider ENDOSCOPY PROCEDURES Inez l Result from Last 3 Months or Most Recently Relevant to Health Maintenance Insurance [facility] CHOICE PLUS [facility] MEDICARE ADVANTAGE Care Teams Obgyn Hospitalist Physician Relationship Specialty Start Date End Date Yeison Serrato DO PCP - General Family Medicine 05/12/19 [place] [address] [place] [address] [place] [address] 05/12/19
--- OUTSIDE RECORDS SUMMARY | 2025-07-07 03:18 | XMS_ITS | Encounter Summary ---
Author Organization [facility] Care Team Providers Care Pellet Post Inspector Name Role Phone Yeison Serrato DO Primary Care Provider + [phone] Yeison Serrato DO Primary Care Provider + [phone] Yeison Serrato DO Primary Care Provider + Yeison Serrato DO Unavailable [phone] Encounter Details Date Type Department Care Team (Latest Contact Info) Description 06/28/2016 Orders Only [facility] ProviderAster MD [address] [place] [address] Social History Tobacco Use Types Packs/Day Years Used Date Smoking Tobacco: Never Assessed Comments Unknown Sex and Gender Information Value Date Recorded Sex Assigned at Not on file Legal Sex Female 11:14 AM LASER ENGRAVER Gender Identity Not on file Sexual Orientation [...] on filedocumented in this encounter Care Teams Pellet Post Inspector Relationship Specialty Start Date End Date Yeison Serrato DO [address] [facility] [address] [place] [address] PCP - General 5/9/16 12/29/16 Yeison Serrato DO [address] [facility] [address] [place] [address] PCP - General 11/29/16 05/11/19 Yeison Serrato DO [address] [facility] [address] [place] [address] PCP - General Family Medicine 05/12/19 Yeison Serrato DO [address] [facility] [place] [address] 05/12/19 documented as of this encounter
[2025-07-07] MEDS: ACETAMINOPHEN 500 MG TABLET 1000 MG PO (06:21)
--- NOTE | 2025-07-07 06:57 | WPDHPUPDATE1 ---
History and Physical Update Update Date/Time: 07/07/25 06:57 History and Physical has been reviewed, including an updated exam of the patient. There are NO changes in the patient's condition. Risks, benefits, and alternatives have been discussed and questions answered. Patient agrees to proceed with procedure.
[2025-07-07] MEDS: LACTATED RINGERS 1,000 ML 30 ML IV CONT ×2 (07:00→09:37)
--- NOTE | 2025-07-07 07:03 | P.PNAN_ITS ---
Anes - Initial Pre Proc Eval Procedure: Operation Date: 07/07/25 07:30 Proposed Procedures p Left Reverse Total Shoulder Arthroplasty - Fausto Ontiveros MD Date/Time: 07/07/25 07:03 Surgeon: Fausto Ontiveros MD Pre Op Diagnosis: Lt Shoulder Cuff Arthropathy Patient Data Age: 65 Gender: F Height: 1.53 m Weight: 84.6 kg Last Vital Signs Temp 37.1 C 06/15/25 12:21 Pulse 72 06/15/25 12:21 Resp 16 06/15/25 12:21 BP 138/72 06/15/25 12:21 Pulse Ox 98 06/15/25 12:21 O2 Del Method Room Air 06/15/25 12:21 Allergies Allergy/AdvReac Type Severity Reaction Status Date / Time No Known Allergies Allergy Verified 07/07/25 07:08 Home Medications ?Medication ?Instructions ?Recorded ?Confirmed ?Type cholecalciferol (vitamin D3) 125 125 mcg PO DAILY 07/05/24 06/15/25 History mcg (5,000 unit) capsule potassium chloride 10 mEq 10 meq PO DAILY #90 caps 07/05/24 06/15/25 Rx capsule,extended release triamterene 37.5 1 tablet PO DAILY #90 tabs 05/29/25 06/15/25 Rx mg-hydrochlorothiazide 25 mg tablet atorvastatin 10 mg tablet 10 mg PO DAILY #90 tabs 05/31/25 06/15/25 Rx meloxicam 7.5 mg tablet 7.5 mg PO DAILY #30 tabs 06/02/25 06/15/25 Rx acetaminophen 500 mg tablet 1,000 mg PO Q6H PRN pain 06/15/25 06/15/25 History (Acetaminophen Extra Strength) fiber 1 tablet PO DAILY 06/15/25 06/15/25 History Patient hx anesthesia problems: none Family hx anesthesia problems: none Results Review: All pre-operative results and documents have been reviewed as part of the pre- operative evaluation. [facility] Past Medical History Medical History Excessive cerumen in both ear canals Arthritis Carpal tunnel syndrome on both sides Rotator cuff arthropathy of both shoulders Family History Family History Father Leukemia Mother Brain tumor Sibling No problems noted. Other Family history of blood dyscrasia Family history of malignant neoplasm of breast in first degree relative Hypertension Social History Social History Smoking status: Never smoker Alcohol intake: never Substance use: never Substance use type: does not use Do You Feel Safe in your Home?: Yes Lack of Transportation: No Lack of Food: Never True Current Housing: I Have Housing Concerned About Future Housing: No Difficulty Paying Gas/Electric Bills: No Difficulty Paying for Meds: No Currently Unemployed: No Education: High School Diploma/GED Difficulty w/ Childcare or Family Care: No Living arrangements: with family [facility] Occupation/Education: retired Gender identity (if verbalized by the patient): Female Spiritual care concerns: No Anes - Eval Final PreProcedure Day of Procedure 07/07/25 07:03 Patient weight: obese Heart: regular rate and rhythm Lungs: clear to auscultation Airway: Mallampati scale class II Neurological: alert and oriented Last oral intake: >/= 8 hours ASA classification: III Emergent: no Anesthetic plan: proceed Anesthesia type and monitoring: general ETT and standard monitoring Results Review: All pre-operative results and documents have been reviewed as part of the pre- operative evaluation. Informed Consent: The patient's anesthetic plan and its attendant risks and benefits were discussed with the patient/family/POA. Questions were solicited and answers provided to the satisfaction of the patient/family/POA.
[2025-07-07] MEDS: TRANEXAMIC ACID 1,000MG/ISO100 1,000 MG/100 ML BAG 200 MG IVPB (07:05)
--- NOTE | 2025-07-07 07:24 | WPDANESPNB ---
Anes - Peripheral Nerve Block Date/Time: 07/07/25 07:24 I have discussed with the patient/family/POA the placement of a peripheral nerve block for post-operative pain management, including associated risks, benefits, complications, and side effects. Alternative methods of post-operative analgesia were detailed. Questions were solicited and answers provided to the satisfaction of the patient/family/POA. Time-Out: A pre-procedural Time-Out was completed immediately before starting the procedure and confirmed: Patient Identification, Site, Procedure, Patient Position and the Availability of Requisite Equipment. Clinical Indications: Acute post-operative pain management requested by the operative surgeon. Nerve Block Insertion Note Anes-nerve block: interscalene left Patient position: supine Skin prep: chlorhexidine Needle: 22 gauge, stimulating, insulated echogenic needle. Needle length: 50 mm Technique: ultrasound Injectate: bupivacaine 0.5% with epi 5 mcg/ml (20cc- no epi) Observations: tolerated well Complications: none Procedure start time:: 717 Procedure end time:: 721
[2025-07-07] MEDS: ceFAZolin 2 GM in SODIUM CHLORIDE 0.9% IV 50 ML 100 ML IVPB (07:26)
--- NOTE | 2025-07-07 07:32 | SUR.PREOP ---
Patient already in OR. Notified OR electrical continuity inspector of patient needing a confirm type.
[2025-07-07] MEDS: SODIUM CHLORIDE 0.9% IV 37.7 ML, MORPHINE SULFATE INJ (*CRX) 2 MG, ROPivacaine HCL 1% 2... INFILTRATE (08:10)
[2025-07-07] MEDS: VANCOMYCIN HCL 1,000 MG VIAL 1000 MG TOPICAL (08:11)
--- NOTE | 2025-07-07 09:41 | W.PM.PROC2 ---
Procedure Note - Detailed Date of Procedure 07/07/25 Pre-op Diagnosis Lt Shoulder Rotator Cuff Arthropathy Post-op Diagnosis Same Procedure Performed Reverse total shoulder arthroplasty, left Surgeon Fausto Ontiveros MD Anesthesia General and Regional (Interscalene block.) Findings Chronic massive superior cuff tear s/p open rotator cuff repair. Small bone stature. Coracobrachialis partial anterior release and subscapularis not repaired to limit potential impingement. Description of Procedure The patient was given an interscalene block in the preoperative area. Preoperative antibiotics were given. The patient was transferred to the operating room and a general anesthetic was administered. The beach chair position was used at 45 degrees. All bony prominences were padded. The head was carefully stabilized on the [facility] biometrics head. A sterile prep and drape was performed in the usual manner with ChloraPrep. A longitudinal incision was created at the anterior shoulder just lateral to the deltopectoral interval. Hydrogen peroxide was placed on the incision and then rinsed after one minute. Careful dissection was performed to expose the interval and protect the cephalic vein. The vein was retracted medially. The upper border of the pectoralis was released. Anterior circumflex vessel branches were suture ligated. The biceps was noted to be scarred in the intertubercular groove. A subscapularis tenotomy was performed. The inferior capsule was released, exposing the humeral head. Osteophytes were removed. Care was taken to stay on bone to protect the axillary nerve. The anatomic head cut was taken with the oscillating saw. The guide pin was placed, central drilling performed, and the broach trial inserted. The neck anteversion and inclination were carefully assessed. The cut protector was placed, and attention was turned to the glenoid. Retractors were placed. Releases were carried out for exposure. The subscapularis was mobilized, the inferior capsule and long head of triceps released, and the superior and middle glenohumeral ligaments released as well. Labral tissue was resected as needed. Version and inclination were corrected according to preoperative templating. The sizing template was used to assess the baseplate position low on the glenoid, with an approximate 10 degrees corrections of retroversion and 10 degrees of inclination. A guide pin was placed. Minimal reaming was used to accomplish a flat surface without violating the subchondral bone. The boss was drilled, and the real component was impacted into position. Supplemental locking screws were placed centrally, superiorly, and inferiorly. Preoperative 3D templating revealed a risk of screw cut-out at the spinal glenoid line notch. Care was taken to place the superior screw more anteriorly by rotating the base plate into this position during preparation. The screw length was left short which matched the templating screw length. The glenosphere was impacted into the taper. The proximal humerus was reamed for the inset component. The humeral components were trialed. The real humeral stem, tray, and insert were impacted into position. The shoulder was copiously irrigated periodically with pulsatile lavage. The shoulder was reduced and stability confirmed. The upper pectoralis was repaired. 1 gram of Vancomycin powder was placed in the joint. The remaining tissue was closed with 2-0 Vicryl, 3-0 Stratafix and 4-0 Stratafix, and steri-strips. A sterile silver occlusive dressing and shoulder immobilizer were placed. The patient was transferred to the recovery room. Implants Shoulder [employer]ations reverse TSA size 0 stem. +0 polyethylene insert. 10 augmented baseplate. 33 + 3 mm glenosphere. Estimated Blood Loss 100 Drains No Pathology None sent Complications No immediate complications Condition Stable Disposition PACU [facility] Billing Surgery - Charge Forward: Surgery Billing
--- NOTE | 2025-07-07 10:11 | SUR.PHASEI ---
XRAys being taken
--- NOTE | 2025-07-07 11:06 | ADMGEN ---
This patient, Beatris Borges, was admitted to [facility] Surg Room 311-01. Patient/family oriented to hospital policies and general routines including ID bracelet, bed and alarms, visiting hours, pain management, procedures, bathroom and other care routines, personal items, smoking policy, room service/diet, and visiting hours. Information on how to activate the Rapid Response Team has been discussed. Patient/Family are encouraged to report perceived risks to care and to ask questions if they do not understand what they are told or what they should do.
[2025-07-07] MEDS: ACETAMINOPHEN 325 MG TABLET 650 MG PO ×2 (11:08→17:50)
[2025-07-07] MEDS: SODIUM CHLORIDE 0.9% IV 1,000 ML 125 ML IV CONT (11:12)
[2025-07-07] MEDS: ceFAZolin 2 GM/D5W 50 ML 2 GM/50 ML BAG IVPB ×2 (13:29→21:56)
[2025-07-07] MEDS: oxyCODONE/ACETAMINOPHEN (*CRX) 10-325 MG TABLET 1 TAB PO (13:44)
[2025-07-07] MEDS: ONDANSETRON INJ 4 MG/2 ML VIAL IV PUSH (15:35)
[2025-07-07] MEDS: SENNA/DOCUSATE SODIUM TABLET 2 TAB PO (17:50)
[2025-07-07] MEDS: ASPIRIN 81 MG ENTERIC TABLET PO (17:50)
[2025-07-07] MEDS: MELOXICAM 7.5 MG TABLET PO (17:50)
[2025-07-08] MEDS: ACETAMINOPHEN 325 MG TABLET 650 MG PO ×2 (00:02→05:44)
[2025-07-08 00:06] VITALS: BP 103/53; PULSE 65; RESP 13; TEMP 36.2; O2SAT 95
[2025-07-08 04:22] VITALS: BP 121/66; PULSE 70; RESP 16; TEMP 37.1; O2SAT 96
[2025-07-08] MEDS: traMADol HCL (*CRX) 50 MG TABLET PO ×2 (04:38→08:44)
[2025-07-08] MEDS: ceFAZolin 2 GM/D5W 50 ML 2 GM/50 ML BAG IVPB (05:44)
[2025-07-08 06:10] LABS: Hematocrit 35.6 % (37.0-47.0); Hemoglobin 11.7 g/dL (12.0-15.0); Immature Granulocyte Percent A 0.5 % (0-0.5); Lymphocytes Absolute Auto 2.11 K/mm3 (0.9-3.2); Mean Corpuscular HGB Conc 32.9 g/dl (32-36); Mean Corpuscular Hemoglobin 32.1 pg (26-34); Mean Corpuscular Volume 97.8 fl (80-100); Nucleated Red Blood Cells Absolute Auto 0.000 K/mm3 (0.0-0.012); Nucleated Red Blood Cells Perc 0.0 % (0.0-0.2); Platelet Count Result 223 k/mm3 (150-375); Red Blood Count 3.64 M/mm3 (4.2-5.4); White Blood Count 17.7 K/mm3 (4.5-10.0)
[2025-07-08 06:45] LABS: Anion Gap 8 mmol/L (4-12); Blood Urea Nitrogen 9 mg/dL (7-17); Calcium 8.6 mg/dL (8.4-10.2); Carbon Dioxide 28 mmol/L (22-30); Chloride 103 mmol/L (98-107); Estimated CRCL calculation 71 ml/min; Estimated Glomerular Filt Rate > 60; Glucose 127 mg/dL (65-110); Potassium 3.1 mmol/L (3.4-5.0); Sodium 139 mmol/L (137-145)
[2025-07-08 08:00] VITALS: O2SAT 96
[2025-07-08 08:22] VITALS: BP 120/67; PULSE 71; RESP 16; O2SAT 96
[2025-07-08] MEDS: MELOXICAM 7.5 MG TABLET PO (08:38)
[2025-07-08] MEDS: SENNA/DOCUSATE SODIUM TABLET 2 TAB PO (08:38)
[2025-07-08] MEDS: ATORVASTATIN 10 MG TABLET PO (08:38)
[2025-07-08] MEDS: ASPIRIN 81 MG ENTERIC TABLET PO (08:39)
[2025-07-08] MEDS: TRIAMTERENE 37.5 MG/HCTZ 25 MG (MAXZIDE) TABLET 1 TAB PO (08:39)
[2025-07-08] MEDS: POTASSIUM CHLORIDE 10 MEQ ER TABLET PO (08:39)
[2025-07-08] MEDS: CHOLECALCIFEROL (VITAMIN D3) 125 MCG (5,000 UNITS) TABLET PO (08:39)
== END 2025-07-08 11:55 | disposition home or self-care (01) ==
LOC: ANHSURGERY 09:49 → ANH3MEDSUR 10:43
PROVIDERS: PCP Family Medicine; Visit Provider Orthopaedic Surgery
PROC: (CPT 23472; principal; 2025-07-07 07:30)
DX: M12.812 Other specific arthropathies, not elsewhere classified, left shoulder (principal); M75.122 Complete rotator cuff tear or rupture of left shoulder, not specified as traumatic; G89.18 Other acute postprocedural pain; G56.03 Carpal tunnel syndrome, bilateral upper limbs; E66.9 Obesity, unspecified; Z68.35 Body mass index [BMI] 35.0-35.9, adult; Z80.6 Family history of leukemia; Z80.3 Family history of malignant neoplasm of breast
CPT/HCPCS: 64415; 23472; 36415; 73030; 80048; 85025; 86850; 86900; 86901; 97110; 97161; 97165; 97530; J0690; A4565; A9270; C1776; J0166; J1100; J1885; J2250; J2270; J2405; J2704; J2795; J3010; J3373; J7030; J7120

== ENCOUNTER 2025-10-20 15:24 | Outpatient (CLI) | payer MEDICARE, SELFPAY ==
--- NOTE | ~2025-10-20 | XR_ITS ---
XR cervical spine min 6V Indication: M54.2 - Cervicalgia Comparison: None Findings: Grade 1 anterolisthesis C4 on C5, no fracture. Moderate loss of disc height at C5-6 and C6-7. Soft tissues unremarkable Impression: No acute abnormality. Reviewed, dictated and finalized at location P. OPERATOR Impression: No acute abnormality.
--- OUTSIDE RECORDS SUMMARY | 2025-10-20 18:09 | XMS_ITS | Encounter Summary ---
Author Organization [facility] Facility Care Team Providers Care Cost Consultant Name Role Phone Yeison Serrato DO Primary Care Provider + [phone] Yeison Serrato DO Primary Care Provider + [phone] Yeison Serrato DO Primary Care Provider + Yeison Serrato DO Unavailable [phone] Encounter Details Date Type Department Care Team (Latest Contact Info) Description 06/28/2016 Orders Only [facility] CLINCONV Provider, MD Aster [address] [place] [id number] Social History Tobacco Use Types Packs/Day Years Used Date Smoking Tobacco: Never Assessed Comments Unknown Sex and Gender Information Value Date Recorded Sex Assigned at Not on file Legal 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
--- OUTSIDE RECORDS SUMMARY | 2025-10-20 18:09 | XMS_ITS | Clinical Summary ---
Author Organization [facility] Office [place] Address [address] [place] [address] Care Team Providers Care Bank Operations Officer Name Role Phone Yeison Serrato DO Primary Care Provider + Yeison Serrato DO Unavailable [phone] Allergies Active Allergy Reactions Criticality Noted Date [...] 07/26/2021 Assessment & Plan (01/28/2022 7:50 AM MUSIC THERAPIST): Patient is well controlled. Continue current treatment. Assessment & Plan (07/26/2021 7:41 AM CDT): Lipid profile and LFT HTN (hypertension) 05/17/2019 Assessment & Plan (01/28/2022 7:50 AM MUSIC THERAPIST): Patient is well controlled. Continue current treatment. Assessment & Plan (07/26/2021 7:40 AM CDT): CBC Chem 7 Assessment & Plan (07/19/2020 9:39 AM CDT): Patient is well controlled. Continue current treatment. Assessment & Plan (11/16/2019 8:37 AM MUSIC THERAPIST): Order lab Assessment & Plan (05/17/2019 9:04 AM CDT): Patient is well controlled. Continue current treatment. Osteoarthritis 05/17/2019 Assessment & Plan (01/28/2022 7:51 AM MUSIC THERAPIST): Patient is well controlled. Continue current treatment. Assessment & Plan (07/19/2020 9:39 AM CDT): Patient is well controlled. Continue current treatment. Assessment & Plan (11/16/2019 8:37 AM MUSIC THERAPIST): No new orders Assessment & Plan (05/17/2019 9:04 AM CDT): Patient is well controlled. Continue current treatment. Resolved Problems Problem Noted Date Diagnosed Date Resolved Date BMI 33.0-33.9,adult 07/26/2021 01/28/20 22 Assessment & Plan (07/26/2021 7:42 AM CDT): She is exercising regularly. She is watching her diet. Neck swelling 11/16/2019 07/26/2021 Assessment & Plan (11/16/2019 8:42 AM MUSIC THERAPIST): Fu ER Doing well No new orders Annual physical exam 09/15/2019 08 023 Assessment & Plan (01/28/2022 7:50 AM MUSIC THERAPIST): Patient is well controlled. Continue current treatment. Annual physical exam 05/17/2019 022 Assessment & Plan (01/25/2021 10:04 AM MUSIC THERAPIST): All lab utd Mammogram utd Colonoscopy utd [...] on file Legal Sex Female 11:14 AM MUSIC THERAPIST Gender Identity Not on file Sexual Orientation [...] 05/17/20 19 Well Visit 65+ 07/09/2024 07/09/2023, 0207/2022, 01/25/2021, Additional history exists Covid-19 Vaccine (3 - 2024-2 6 season) 2025 07/23/2021, 07/02/2021 Influenza Vaccine (#1) 2025 , [...] HEPATITIS C ANTIBODY Routine 12/26/2021 7:55 AM MUSIC THERAPIST Primary hypertension Dyslipidemia BMI 33.0-33.9,adult Contact with and (suspected) exposure to potentially hazardous body fluids SCREENING MAMMOGRAM Schedule Routine, Read Routine (OP Routine) 09/03/2021 COLONOSCOPY Routine 06/15/2019 from Last 3 Months or Most Recently Relevant to Health Maintenance Results * Hepatitis C antibody (12/26/2021 7:55 AM MUSIC THERAPIST) Hep C Ab <0.1 0.0 - 0.9 s/co ratio [facility] - 01 Comment: Negative: < 0.8 Indeterminate: 0.8 - 0.9 Positive: > 0.9 The CDC recommends that a positive HCV antibody result be followed up with a HCV Nucleic Acid Amplification test (711069). Blood specimen (specimen) 12/26/2021 7:55 AM MUSIC THERAPIST 12/26/2021 Narrative [facility] - 12/27/2021 7:36 AM MUSIC THERAPIST Performed at: [facility] [id number] Bridge Opener: Ian Wilkerson PhD, Phone: [phone] Yeison Serrato DO LAB MICROBIOLOGY - GENER AL ORDERABLES Final Result Performing Organization Address City/State/[facility] Co de Phone Number [facility] - 01 * Screening Mammogram (09/03/2021) Anatomical Region Laterality Modality Breast N/A Mammography Historical Provider IMG MAMMO PROCEDURES [facility] Result * Colonoscopy (06/15/2019) Anatomical Region Laterality Modality Other Historical Provider ENDOSCOPY PROCEDURES [facility] Result from Last 3 Months or Most Recently Relevant to Health Maintenance Insurance [facility] CHOICE PLUS [facility] MEDICARE ADVANTAGE Care Teams Bank Operations Officer Relationship Specialty Start Date End Date Yeison Serrato DO PCP - General Family Medicine 05/12/19 [place] [address] [place] [address] [place] [address] 05/12/19
== END 2025-10-20 15:25 | disposition home or self-care (01) ==
PROVIDERS: PCP Family Medicine; Visit Provider Family Medicine
DX: M54.2 Cervicalgia (principal)
CPT/HCPCS: 72052